=== PATIENT | female | born 2000 | race Caucasian/White ===

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

== ENCOUNTER → 2018-01-11 13:55 | Outpatient (CLI) | payer BC, MEDICAID, SELFPAY ==
--- NOTE | 2018-01-11 13:56 | US_ITS ---
STUDY: SECOND AND THIRD TRIMESTER OBSTETRICAL ULTRASOUND - LIMITED REASON FOR EXAM: Female, 17 years old. growth. LMP: 04/09/2017 PRIOR ULTRASOUND: 08/17/2017. TECHNIQUE: Transabdominal ultrasound evaluation was performed. FINDINGS: There is a single intrauterine fetus. The fetus is in a cephalic presentation. There is demonstrated cardiac activity with a heart rate of 142 bpm. There is a normal amniotic fluid volume. The largest amniotic fluid pocket measures 5.0 cm. The amniotic fluid index (OLAYINKA) is 9.6 cm. The placenta is anterior in location and is not low lying. There are Grade 3 placental changes. Cervix is not adequately measured. It is grossly closed. BIOMETRY: BPD: 9.5: 38 weeks, 5 days HC: 34.3: 39 weeks, 5 days AC: 35.5: 39 weeks, 3 days FL: 7.7: 39 weeks, 3 days Age by LMP: 39 weeks, 4 days. BHAVIK by LMP: 01/14/2018. age by prior US: 39 weeks, 6 days. BHAVIK by prior US: 01/12/18. age by current US: 39 weeks, 3 days. BHAVIK by current US: 01/15/2018. Estimated weight: 3751 grams, +/- 548 grams, 68 percentile. Gender: US/OB Limited With Biometrics IMPRESSION: Single live fetus in a vertex presentation. survey not performed on this exam. Placenta is grade 3 and is not low-lying. Cervix is grossly closed. age by prior US: 39 weeks, 6 days. BHAVIK by prior US: 01/12/18. age by current US: 39 weeks, 3 days. BHAVIK by current US: 01/15/2018. Estimated weight: 3751 grams, +/- 548 grams, 68 percentile. Electronically Signed: Jose Vizcaino MD at 10:36 EDT , Service support ,
== END ==
PROVIDERS: Visit Provider Obstetrics & Gynecology
DX: Z34.90 Encounter for supervision of normal pregnancy, unspecified, unspecified trimester (principal)
CPT/HCPCS: 76816

== ENCOUNTER 2018-01-13 14:30 | Inpatient (IN) | payer BC, MEDICAID, SELFPAY ==
[2018-01-13 11:19] VITALS: BMI 44.8
[2018-01-13] MEDS: 0.9% Saline Lock 10 ML Syringe IV (11:35)
[2018-01-13 11:53] LABS: Hemoglobin 12.9 g/dl (12.0-15.0); Mean Corp Hgb Conc 33.9 g/gl (32-36); Mean Corpuscular Hgb 30.8 pg (27.0-32.0); Mean Corpuscular Volume 90.7 fL (81-99); Mean Platelet Vol. 10.1 fl (6.2-12.0); Platelet Count 259 K/mm3 (150-450); RBC Distribution Width CV 12.8 % (11.6-14.6); RBC Distribution Width SD 41.8 fl (35.1-43.9); Red Blood Count 4.19 M/mm3 (4.2-5.4); Scan Indicated on CBC? Y/N NO; White Blood Count 14.6 K/mm3 (4.4-11.0)
[2018-01-13 12:28] LABS: Prothrombin Time (Protime)PT. 12.9 SECONDS (11.7-14.9)
[2018-01-13 12:29] LABS: Partial Thromboplast Time 28.1 Seconds (24.1-36.2)
[2018-01-13 12:38] LABS: AST(SGOT) 10 U/L (15-37); Alanine Aminotransfer ALT/SGPT 10 U/L (13-56); Creatinine, Serum 0.54 mg/dL (0.55-1.02); EST Glomerular Filtration Rate 153 mL/min (>60); Est Glom Filt Rate - Afr Amer 185 mL/min (>60); Estimated Creatinine Clearance 150.78 ml/min; Uric Acid 3.9 mg/dL (2.6-6.0)
[2018-01-13 12:46] LABS: Protein:Creat Ratio 153 mg/g CRE (0-200)
[2018-01-13] MEDS: Lactated Ringers 1,000 ML 50 ML IV (14:45)
--- NOTE | 2018-01-13 15:46 | PCM.HP.OB ---
- Problem List (1) heart deceleration Status: Acute (2) Supervision of normal Status: Acute Qualifiers: Comment: PRR BHAVIK 01/14/18 boy Ambrosio boyfriend Juan (3) Morbid obesity Status: Acute History Date of Admission: 01/13/18 Final BHAVIK: 01/14/18 Gestational age: 39 Weeks and 6 Days History of this : 17 yo @ 39w6d presents for IOL secondary to heart rate decelerations. she had a four minute spontaneous decel followed by a late decel during triage monitoring. Pertinent Past Medical History: Past Surgical History (Last Reviewed 01/13/18 @ 10:31 by Madeline Salazar) History of tonsillectomy (Acute) Social History (Last Reviewed 01/13/18 @ 10:31 by Madeline Salazar) No Social History Section defined Mom's Labs & Results 01/13/18 01/13/18 01/13/18 11:35 11:35 11:35 WBC 14.6 H RBC 4.19 L Hgb 12.9 Hct 38.0 MCV 90.7 MCH 30.8 MCHC 33.9 RDW 12.8 RDW Differential 41.8 Plt Count 259 MPV 10.1 PT 12.9 INR 1.0 APTT 28.1 Creatinine 0.54 L Estim Creat Clear Calc 150.78 Est GFR (MDRD) Af Amer 185 Est GFR (MDRD) Non-Af 153 Uric Acid 3.9 AST 10 L ALT 10 L U Random Total Protein Urine Creatinine Protein/Creatinin Ratio Blood Type Antibody Screen 01/13/18 01/13/18 12:00 12:00 WBC RBC Hgb Hct MCV MCH MCHC RDW RDW Differential Plt Count MPV PT INR APTT Creatinine Estim Creat Clear Calc Est GFR (MDRD) Af Amer Est GFR (MDRD) Non-Af Uric Acid AST ALT U Random Total Protein 23.0 H Urine Creatinine 150.00 Protein/Creatinin Ratio 153 Blood Type A POSITIVE Antibody Screen NEGATIVE Course Did the patient receive Yes care? Labs HIV/AIDS Non-Reactive Current Obstetrical History Gestational Diabetes No Incompetent Cervix No Infertility No IUGR No Macrosomia No Hypertension/Pre-eclampsia No Placenta Previa/Abruption No PTL/PROM No Uterine anomaly No Oligohydramnios No Polyhydramnios No Multiple gestation No Past Medical History Asthma No Diabetes No Hypertension No Heart disease No Mitral valve prolapse No Neurologic/Seizure disorder/ No Migraines Kidney disease No Liver disease No Varicosities No Clotting disorders/Hx of DVT No Thyroid Dysfunction No Other medical diseases No Psychiatric disorders No Major trauma No Abnormal PAP smear No Sleep apnea No Mammogram in the last 2 years No Social History Marital Status: SINGLE Alleged father Juan Corbett Hx Smoking No Smoking Status Former smoker Allergies ibuprofen Allergy (Verified 01/13/18 10:31) Angioedema Current Medications Acetaminophen (Tylenol) 325 - 650 mg PO Q4H PRN PRN PRN Reason: PAIN OR FEVER >100.4F Al Hydroxide/Mg Hydroxide (Mylanta Ii) 15 - 30 ml PO Q4H PRN PRN PRN Reason: INDIGESTION Citric Acid/Sodium Citrate (Bicitra) 30 ml PO UD PRN Lactated Ringer's () 1,000 mls @ 50 mls/hr IV .Q20H TERRY Nalbuphine HCl (Nubain) 5 - 10 mg IV Q3H PRN PRN PRN Reason: PAIN (4-10/10) Ondansetron HCl (Zofran) 4 mg IV Q8H PRN PRN PRN Reason: NAUSEA Promethazine HCl (Phenergan Iv) 6.25 - 12.5 mg IV Q4H PRN PRN; Protocol PRN Reason: IF NAUSEA PERSISTS Sodium Chloride () 5 - 15 ml IV UD TERRY Smoking Status: Never smoker Alcohol: None Drug Use: none Number of Fetus(es): 1 - 150 moderate variability reactive 4 minute spontaneous decel, one late, overall category I reassuring toco irritability Review of Systems Constitutional: Denies: Chills, Fever, Weight Change HEENT: Denies: Head Aches, Sinus Congestion, Sinus Drainage Cardiovascular: Denies: Chest Pain, Palpitations Respiratory: Denies: Cough, Shortness of breath at rest, Sputum production Gastrointestinal: Denies: Abdominal Pain, Nausea, Vomiting Genitourinary: Denies: Dysuria Musculoskeletal: Denies: Joint Pain, Joint Tenderness Skin: Denies: Rash, Wounds Neurological: Denies: Numbness, Tingling, Focal weakness Psychiatric: Denies: Anxiety, Depression, Homicidal Ideations, Suicidal Ideations Hematologic/ Lymphatic: Denies: Easy Bruising, Easy Bleeding Physical Exam General: Alert, Oriented x3 Cardiovascular: Regular rate Lungs: Normal air movement Abdomen: Soft, Non Tender Estimated gestational size: Appropriate for gestational size Cervix Dilation (cm): 1.5 Station: -3 Effacement (%): 70 Assessment/Plan Active and Suspected Problems (Last Reviewed 01/13/18 @ 10:31 by Madeline Salazar) heart deceleration (Acute) Morbid obesity (Acute) 17 yo @ 39w6d presents for IOL secondary to heart rate decel plan cytotec IOL epi prn
[2018-01-13] MEDS: miSOPROStol 25 MCG TABLET VAGINAL (20:51)
[2018-01-14] MEDS: Lactated Ringers 1,000 ML 50 ML IV ×6 (00:18→14:41)
[2018-01-14] MEDS: 0.9% Normal Saline 100 ML IV.SOLN. INTRA-UTER (01:43)
[2018-01-14] MEDS: Oxytocin 30 units/NS 500 ml 30 UNITS/500 ML IV.SOLN IV (02:15)
--- NOTE | 2018-01-14 05:54 | PCM.PN.BLA ---
Progress Note fht 140s moderate variability reactive unable to trace contractions so unclear if decelerations are present. arom performed and iupc placed.exp management
[2018-01-14] MEDS: fentaNYL-bupivacaine (epidural) 100 ML BAG EPIDURAL ×2 (08:04→12:50)
[2018-01-14] MEDS: Amnioinfusion- 0.9% NS 1,000 ML IV.SOLN. INTRA-UTER ×2 (09:14→12:45)
--- NOTE | 2018-01-14 09:26 | PCM.PN.BLA ---
Progress Note fhts 150s had 20 minutes of late decels with minimal variability and then positive scalp stimulation, recurrent variables x 10 minutes with moderate variability and then resolution of decels, positive accelerations. continue expectant managment. now category I tracing
[2018-01-14] MEDS: Terbutaline 1 MG/ML Vial 0.25 MG SC (09:45)
[2018-01-14] MEDS: Oxytocin 30 units/NS 500 ml 30 UNITS/500 ML IV.SOLN 334 UNITS IV (16:13)
[2018-01-14] MEDS: Oxytocin 30 units/NS 500 ml 30 UNITS/500 ML IV.SOLN 167 UNITS IV (16:43)
[2018-01-14 18:00] VITALS: BP 118/82; PULSE 115; RESP 20; TEMP 36.4
[2018-01-14] MEDS: Acetaminophen 500 MG Tablet 1000 MG PO (19:45)
[2018-01-14 19:51] VITALS: BP 123/58; PULSE 110; RESP 16; TEMP 36.8
[2018-01-15 00:59] VITALS: BP 120/60; PULSE 80; RESP 18; TEMP 37
[2018-01-15] MEDS: Acetaminophen 500 MG Tablet 1000 MG PO ×2 (04:39→16:05)
[2018-01-15 04:40] VITALS: BP 110/65; PULSE 100; RESP 18; TEMP 36.7; O2SAT 97
[2018-01-15 08:00] VITALS: BP 113/60; PULSE 100; RESP 18; TEMP 36.4; O2SAT 98
[2018-01-15 12:00] VITALS: BP 112/68; PULSE 98; RESP 18; TEMP 36.5
[2018-01-15 16:18] VITALS: BP 115/64; PULSE 108; RESP 18; TEMP 36.6
[2018-01-15 20:00] VITALS: BP 121/71; PULSE 95; RESP 16; TEMP 36.4; O2SAT 97
[2018-01-16 01:40] VITALS: BP 123/82; PULSE 96; RESP 18; TEMP 36.6
--- NOTE | 2018-01-16 07:00 | PCM.OB.VAG ---
- Problem List (1) heart deceleration Status: Acute (2) Supervision of normal Status: Acute Qualifiers: Comment: PRR BHAVIK 01/14/18 boy Ambrosio boyfrienmiguel a Martinez (3) Morbid obesity Status: Acute Vaginal Delivery Maternal Presentation: Medically Indicated Induction iol decels Method of Induction: Pitocin, Schmitz Bulb, Cytotec Amniotic Fluid Description: Clear Final BHAVIK: 01/14/18 Gestational age: 40 Weeks and 2 Days Date of Procedure: 01/14/18 Pre-Operative Diagnosis: iol decels Post-Operative Diagnosis: justino Surgery/ Procedure Performed: Spontaneous Vaginal Delivery Type of Anesthesia: Epidural Description of Procedure: Patient began pushing and delivered the head in the OMEGA presentation. The head was delivered atraumatically and a loose nuchal cord ?1 was identified and easily reduced over the 's head. The anterior and posterior shoulders delivered without complication followed by the rest of the infant which was noted to have a tight double body cord the was reduced and the was placed on the maternal abdomen. Delayed cord clamping was employed for approximately 60 seconds. Cord was clamped and cut and gentle traction was applied to the cord and the placenta delivered spontaneously immediately following it was noted to be intact with three-vessel cord. The perineum and vagina were inspected and noted to have a second degree laceration that was repaired in the usual fashion. Patient and infant tolerated delivery well. Placental Delivery Description: Spontaneous Cord Entanglement: Around neck x 1, loose, - - body cord x 2 Infant A gender: Male Laceration: Perineal Extension/lac, 2nd degree Medications given after delivery: IV Pitocin Complications: None
--- NOTE | 2018-01-16 07:07 | PCM.PN.OB ---
Patient Problems: Active and Suspected Problems (Last Reviewed 01/13/18 @ 10:31 by Madeline Salazar) heart deceleration (Acute) Morbid obesity (Acute) Subjective: late entry - seen 01/15/18 0800 doing well no complaints pain controlled - Physical Exam General: Alert Vital Signs Temp Pulse Resp BP Pulse Ox 97.9 F 96 18 123/82 H 97 01/16/18 01:40 01/16/18 01:40 01/16/18 01:40 01/16/18 01:40 01/15/18 20:00 Oxygen Delivery Method Room Air Weight: 269 lb 6.478 oz Body Mass Index (BMI) 44.8 Intake and Output for Last 24 Hours 01/14/18 01/15/18 01/16/18 23:59 23:59 23:59 Intake Total 7541 / 7541 Output Total 3150 / 3150 Balance 4391 / 4391 Medical Necessity - Tobacco Use Smoking Status: Never smoker Assessment/Plan Active and Suspected Problems (Last Reviewed 01/13/18 @ 10:31 by Madeline Salazar) heart deceleration (Acute) Morbid obesity (Acute) s/p routine care
--- NOTE | 2018-01-16 07:08 | PCM.DCVAG ---
Discharge Diet: No Restrictions Discharge Activity: Return to Normal Activity, May not drive while taking narcotic pain medications., May Shower May resume sexual activity in: 4-6 weeks Call your doctor if your incision/area has: Continuous Slow Oozing, Sudden Increased Bleeding, Increased Pain/ Swelling, Increased Redness, Foul Smelling Discharge Additional Instructions: If you experience any of the following, contact your healthcare provider. Bleeding that soaks a pad every hour for 2 hours Fever 100.4 or higher Unrelieved incision or abdominal pain Swelling, redness, discharge or bleeding from your incision or episiotomy site Your incision begins to separate Problems urinating (including inability to urinate or burning while urinating). Visual changes Severe headache Flu-like symptoms Pain or redness in one of both of your breasts Pain, warmth, tenderness or swelling in your legs, especially the calf area Frequent nausea and vomiting Symptoms of depression or anxiety If you experience any of the following, call 911 or go to the nearest Emergency Room. Chest pain Problems breathing Seizure activity Partial or complete paralysis of a body part, slurred speech, weakness or drooping of the face, or a sudden inability to walk or hold your balance Allergies/Adverse Reactions: Allergies ibuprofen Allergy (Verified 01/13/18 10:31) Angioedema Medications to take at Discharge Vit No.130/Iron/FA [ Vitamins] 1 ea PO DAILY 05/22/17 Please Follow Up With: Guadalupe Nunn MD - [phone] When: Call to make an appointment with your doctor in 6 weeks. If you had elevated Blood pressure or 4th degree laceration you will need to be seen in 2 weeks. Primary Care Physician: Care Physician,No Primary [Primary Care Provider] -
--- NOTE | 2018-01-16 07:09 | DCINST_ITS ---
Discharge Diet: No Restrictions Discharge Activity: Return to Normal Activity, May not drive while taking narcotic pain medications., May Shower May resume sexual activity in: 4-6 weeks Call your doctor if your incision/area has: Continuous Slow Oozing, Sudden Increased Bleeding, Increased Pain/ Swelling, Increased Redness, Foul Smelling Discharge Additional Instructions: If you experience any of the following, contact your healthcare provider. * Bleeding that soaks a pad every hour for 2 hours * Fever 100.4 or higher * Unrelieved incision or abdominal pain * Swelling, redness, discharge or bleeding from your incision or episiotomy site * Your incision begins to separate * Problems urinating (including inability to urinate or burning while urinating) . * Visual changes * Severe headache * Flu-like symptoms * Pain or redness in one of both of your breasts * Pain, warmth, tenderness or swelling in your legs, especially the calf area * Frequent nausea and vomiting * Symptoms of depression or anxiety If you experience any of the following, call 911 or go to the nearest Emergency Room. * Chest pain * Problems breathing * Seizure activity * Partial or complete paralysis of a body part, slurred speech, weakness or drooping of the face, or a sudden inability to walk or hold your balance Allergies/Adverse Reactions: Allergies ibuprofen Allergy (Verified 01/13/18 10:31) Angioedema Medications to take at Discharge Vit No.130/Iron/FA [ Vitamins] 1 ea PO DAILY 05/22/17 Please Follow Up With: Guadalupe Nunn MD - [phone] When: Call to make an appointment with your doctor in 6 weeks. If you had elevated Blood pressure or 4th degree laceration you will need to be seen in 2 weeks. Primary Care Physician: Care Physician,No Primary [Primary Care Provider] -
[2018-01-16 07:40] VITALS: BP 130/76; PULSE 109; RESP 14; TEMP 36.4; O2SAT 97
[2018-01-16] MEDS: Prenatal Vits Tablet 1 TABLET PO (11:52)
[2018-01-16 14:03] VITALS: BP 143/69; PULSE 101; RESP 16; TEMP 36.6; O2SAT 99
== END 2018-01-16 15:20 | disposition home or self-care (01) | DRG 775 ==
LOC: WP 14:49 → WPOUT 01-15 13:20
PROVIDERS: Admitting Provider Obstetrics & Gynecology; Visit Provider Obstetrics & Gynecology
DX: O76 Abnormality in fetal heart rate and rhythm complicating labor and delivery (principal); O70.1 Second degree perineal laceration during delivery; Z37.0 Single live birth; O69.81X0 Labor and delivery complicated by cord around neck, without compression, not applicable or unspecified; O99.214 Obesity complicating childbirth; E66.01 Morbid (severe) obesity due to excess calories; Z87.891 Personal history of nicotine dependence; Z3A.40 40 weeks gestation of pregnancy; Z68.53 Body mass index [BMI] pediatric, 85th percentile to less than 95th percentile for age
CPT/HCPCS: 36415; 59025; 59050; 82565; 82570; 84156; 84450; 84460; 84550; 85027; 85610; 85730; 86850; 86900; 99218; J7030; J7120; A4216; G0378

== ENCOUNTER → 2018-06-30 18:10 | Outpatient (CLI) | payer BC, SELFPAY | PROVIDERS: Visit Provider Nurse Practitioner Women's Health | DX: N76.0 Acute vaginitis (principal) | CPT/HCPCS: 87070; 87077; 87186; 87205 ==

== ENCOUNTER → 2018-09-30 18:00 | Outpatient (CLI) | payer BC, SELFPAY ==
[2018-09-30 15:23] VITALS: BMI 45.3
[2018-09-30 21:43] LABS: Chlamydia Trachomatis by PCR POSITIVE (Negative); Neisserai gonorrhoeae by PCR Negative (Negative); Probe Check PASS; Sample Adequacy Control PASS; Specimen Processing Control PASS
[2018-10-04 12:37] LABS: HSV Culture Without Typing Positive (.)
== END ==
PROVIDERS: Referring Provider Nurse Practitioner Women's Health; Visit Provider Nurse Practitioner Women's Health
DX: Z11.3 Encounter for screening for infections with a predominantly sexual mode of transmission (principal); N90.89 Other specified noninflammatory disorders of vulva and perineum
CPT/HCPCS: 87255; 87491; 87591

== ENCOUNTER → 2018-10-29 14:13 | Outpatient (CLI) | payer BC, MEDICAID, SELFPAY ==
[2018-10-29 13:51] VITALS: BMI 45.1
[2018-10-29 15:59] LABS: HIV - WCH Non-Reactive (Nonreactive)
[2018-10-29 21:35] LABS: Chlamydia Trachomatis by PCR Negative (Negative)
[2018-10-29 21:36] LABS: Neisserai gonorrhoeae by PCR Negative (Negative); Probe Check PASS; Sample Adequacy Control PASS; Specimen Processing Control PASS
[2018-11-01 22:07] LABS: HCV Quant. RNA PCR HCV Not Detected IU/mL (.)
[2018-11-03 16:37] LABS: HSV 2 IgG 0.95 index (0.00-0.90)
[2018-11-05 01:10] LABS: Rapid Plasmin Reagin (RPR) NONREACTIVE (NONREACTIVE)
== END ==
PROVIDERS: Referring Provider Nurse Practitioner Women's Health; Visit Provider Nurse Practitioner Women's Health
DX: Z11.3 Encounter for screening for infections with a predominantly sexual mode of transmission (principal)
CPT/HCPCS: 36415; 86592; 86695; 86696; 86703; 87491; 87522; 87591

== ENCOUNTER → 2019-04-11 17:09 | Outpatient (CLI) | payer OTHER, MEDICAID, SELFPAY ==
[2019-04-11 15:54] VITALS: BMI 45.1
[2019-04-11 21:40] LABS: Chlamydia Trachomatis by PCR Negative (Negative); Neisserai gonorrhoeae by PCR Negative (Negative); Probe Check PASS; Sample Adequacy Control PASS; Specimen Processing Control PASS
[2019-04-15 17:01] LABS: HPV Reflexed? NOT INDICATED
== END ==
PROVIDERS: Referring Provider Obstetrics & Gynecology; Visit Provider Obstetrics & Gynecology
DX: Z12.4 Encounter for screening for malignant neoplasm of cervix (principal); Z34.90 Encounter for supervision of normal pregnancy, unspecified, unspecified trimester
CPT/HCPCS: 87086; 87088; 87491; 87591; 87624; 88175; G0145

== ENCOUNTER → 2019-05-10 12:17 | Outpatient (CLI) | payer OTHER, MEDICAID, SELFPAY ==
[2019-05-10 11:44] VITALS: BMI 45.1
[2019-05-10 13:59] LABS: Absolute Neutrophil Count 5.3 X10^3/uL (2.0-7.7); Basophil# 0.03 X10^3/uL; Basophil% 0.4 % (0-1); Eosinophil# 0.09 X10^3/uL; Eosinophils% 1.1 % (0-5); Hematocrit 36.4 % (37-47); Hemoglobin 12.2 g/dL (12.0-15.0); Lymphocyte % 29.5 % (19-41); Mean Corp Hgb Conc 33.5 g/dL (32-36); Mean Corpuscular Hgb 29.7 pg (27.0-32.0); Mean Corpuscular Volume 88.6 fL (81-99); Mean Platelet Vol. 10.6 fl (6.2-12.0); Monocyte# 0.53 X10^3/uL; Monocyte% 6.3 % (0-10); NRBC Flagged by Analyzer 0 % (0-5); Neutrophil # 5.29 X10^3/uL (2.7-7.7); Neutrophil % 62.3 % (47-70); Platelet Count 240 K/mm3 (150-450); RBC Distribution Width CV 12.4 % (11.6-14.6); RBC Distribution Width SD 39.9 fl (35.1-43.9); Red Blood Count 4.11 M/mm3 (4.2-5.4); White Blood Count 8.5 K/mm3 (4.4-11.0)
[2019-05-10 14:22] LABS: Glucose Challenge Gest 1H 50g 100 mg/dL (70-140)
[2019-05-10 15:11] LABS: HIV - WCH Non-Reactive (Nonreactive); Rubella IgG 67.5 IU/mL
[2019-05-12 13:36] LABS: Rapid Plasmin Reagin (RPR) NONREACTIVE (NONREACTIVE)
== END ==
PROVIDERS: Family Provider Family Medicine; PCP Family Medicine; Referring Provider Obstetrics & Gynecology; Visit Provider Obstetrics & Gynecology
DX: Z34.82 Encounter for supervision of other normal pregnancy, second trimester (principal); Z31.5 Encounter for procreative genetic counseling; Z13.79 Encounter for other screening for genetic and chromosomal anomalies
CPT/HCPCS: 36415; 82950; 85025; 86592; 86703; 86762; 86850; 86900

== ENCOUNTER → 2019-09-01 14:26 | Outpatient (CLI) | payer OTHER, MEDICAID, SELFPAY ==
[2019-09-01 14:02] VITALS: BMI 47.9
[2019-09-01 15:30] LABS: Protein, Urine (Random) 24.8 mg/dL (<11.9); Protein:Creat Ratio 182 mg/g CRE (0-200)
[2019-09-01 16:25] LABS: Absolute Lymphocyte Count 2.42 X10^3/uL (0.83-4.51); Absolute Neutrophil Count 8.8 X10^3/uL (2.0-7.7); Basophil# 0.03 X10^3/uL; Basophil% 0.2 % (0-1); Eosinophil# 0.14 X10^3/uL; Eosinophils% 1.2 % (0-5); Hematocrit 33.8 % (37-47); Hemoglobin 11.5 g/dL (12.0-15.0); Lymphocyte # 2.42 X10^3/ul (4.0); Mean Corpuscular Hgb 30.9 pg (27.0-32.0); Mean Corpuscular Volume 90.9 fL (81-99); Mean Platelet Vol. 10.7 fl (6.2-12.0); Monocyte# 0.57 X10^3/uL; Monocyte% 4.7 % (0-10); NRBC Flagged by Analyzer 0 % (0-5); Neutrophil % 72.5 % (47-70); Platelet Count 212 K/mm3 (150-450); RBC Distribution Width CV 13.2 % (11.6-14.6); RBC Distribution Width SD 43.6 fl (35.1-43.9); Red Blood Count 3.72 M/mm3 (4.2-5.4); White Blood Count 12.1 K/mm3 (4.4-11.0)
[2019-09-01 16:57] LABS: BUN 5 mg/dL (7-18); Creatinine, Serum 0.56 mg/dL (0.55-1.02); EST Glomerular Filtration Rate 144 mL/min (>60); Glucose 114 mg/dL (74-106); Glucose Challenge Gest 1H 50g 114 mg/dL (70-140)
[2019-09-01 16:58] LABS: ALB/GLOB Ratio 0.6 RATIO (0.9-2.4); AST(SGOT) 9 U/L (15-37); Alanine Aminotransfer ALT/SGPT 8 U/L (13-56); Albumin, Serum 2.9 g/dL (3.2-5.0); Alkaline Phosphatase 103 U/L (45-117); Anion Gap 11 (5-15); BUN/Creat Ratio 8.9 RATIO (10-20); Calcium,Total 8.8 mg/dL (8.5-10.1); Chloride 107 mmol/L (98-107); Est Glom Filt Rate - Afr Amer 175 mL/min (>60); Globulin 4.5 g/dL (2.2-4.2); Potassium 3.5 mmol/L (3.5-5.1); Protein, Total 7.4 g/dL (6.4-8.2); Sodium Level 139 mmol/L (136-145)
[2019-09-02 09:08] LABS: Hepatitis B Surface Antigen Non-Reactive (Nonreactive)
== END ==
PROVIDERS: Family Provider Family Medicine; PCP Family Medicine; Referring Provider Nurse Practitioner Women's Health; Visit Provider Nurse Practitioner Women's Health
DX: O09.90 Supervision of high risk pregnancy, unspecified, unspecified trimester (principal); E66.01 Morbid (severe) obesity due to excess calories; Z3A.00 Weeks of gestation of pregnancy not specified
CPT/HCPCS: 36415; 80053; 82570; 82950; 84156; 85025; 87340

== ENCOUNTER 2019-09-24 22:35 | Outpatient (CLI) | payer OTHER, MEDICAID, SELFPAY ==
[2019-09-22 14:59] VITALS: BMI 47.9
[2019-09-24 23:12] VITALS: BMI 49.2
--- NOTE | 2019-09-25 04:19 | OB.TRI.PN_ITS ---
Progress Notes Date of Service: 09/24/19 Progress Note: Patient presents for triage evaluation secondary to decreased movement FHT: 130-1 40 moderate variability reactive no decelerations category I tracing Mullan: Regular contractions Assessment and plan: Decreased movement overall reassuring patient now fe eling movement reactive NST, reassuring maternal and status patient discharged to home to follow-up as scheduled. See problem list details for additional plan information. - Problem List (1) Decreased movement Status: Acute Multi Select Codes - Urinary/Genital Urinary/Genital CPT Codes: 11639-96 non-stress test Interp
== END 2019-09-24 23:23 | disposition home or self-care (01) ==
LOC: WPOUT 22:54 → WP 22:55
PROVIDERS: Family Provider Family Medicine; PCP Family Medicine; Referring Provider Obstetrics & Gynecology; Visit Provider Obstetrics & Gynecology
DX: O36.8190 Decreased fetal movements, unspecified trimester, not applicable or unspecified (principal); Z3A.00 Weeks of gestation of pregnancy not specified
CPT/HCPCS: 59025; 59050; 94760; 99218; G0378

== ENCOUNTER → 2019-10-11 13:54 | Outpatient (CLI) | payer OTHER, MEDICAID, SELFPAY ==
[2019-10-06 12:18] VITALS: BMI 49.2
--- NOTE | 2019-10-11 13:55 | US_ITS ---
STUDY: SECOND AND THIRD TRIMESTER OBSTETRICAL ULTRASOUND - LIMITED REASON FOR EXAM: Female, 19 years old GROWTH LMP: February 19, 2019. COMMENT: The study is technically limited secondary to the patient''s large body habitus. PRIOR ULTRASOUND: None. TECHNIQUE: Transabdominal FINDINGS: There is a single intrauterine fetus. The fetus is in a cephalic presentation. There is demonstrated cardiac activity with a heart rate of 165 bpm. There is a normal amniotic fluid volume. The largest amniotic fluid pocket measures 2.95 cm. The amniotic fluid index (OLAYINKA) is 6.64 cm. The placenta is anterior in location and is not low lying. There are Grade 2 placental changes. The cervix measures 3.9cm in length and is closed. BIOMETRY: BPD: 8.75 cm: 35 weeks, 3 days HC: 31.29 cm: 35 weeks, 1 days AC: 29.49 cm: 33 weeks, 4 days FL: 6.40 cm: 33 weeks, 1 days OFD: 10.77 cm: 34 weeks, 3 days HC/AC 1.06. CI 81%. FL/BPD 73%. FL/AC 22%. Age by LMP: 33 weeks, 3 days. BHAVIK by LMP: November 26, 2019. age by current US: 34 weeks, 3 days. BHAVIK by current US: November 19, 2019.. Estimated weight: 2253 grams, +/- 329 grams, 50 percentile. Gender: Indeterminate. Please note that anatomic survey was not performed on this late gestation. US/OB Limited With Biometrics IMPRESSION: Viable, cramer, cephalic presentation intrauterine , please see text above. Electronically Signed: Ron Barger MD at 10:48 EST , Service support ,
== END ==
PROVIDERS: Family Provider Family Medicine; PCP Family Medicine; Referring Provider Obstetrics & Gynecology; Visit Provider Obstetrics & Gynecology
DX: O99.211 Obesity complicating pregnancy, first trimester (principal); Z3A.00 Weeks of gestation of pregnancy not specified
CPT/HCPCS: 76816

== ENCOUNTER → 2019-11-04 16:37 | Outpatient (CLI) | payer OTHER, MEDICAID, SELFPAY ==
[2019-11-04 14:22] VITALS: BMI 49.2
== END ==
PROVIDERS: PCP Family Medicine; Referring Provider Obstetrics & Gynecology; Visit Provider Obstetrics & Gynecology
DX: O09.90 Supervision of high risk pregnancy, unspecified, unspecified trimester (principal); Z3A.00 Weeks of gestation of pregnancy not specified
CPT/HCPCS: 87081

== ENCOUNTER → 2019-11-08 13:55 | Outpatient (CLI) | payer OTHER, MEDICAID, SELFPAY ==
[2019-10-06 12:18] VITALS: BMI 49.2
[2019-11-04 14:22] VITALS: BMI 49.2
--- NOTE | 2019-11-08 13:56 | US_ITS ---
STUDY: SECOND AND THIRD TRIMESTER OBSTETRICAL ULTRASOUND - LIMITED REASON FOR EXAM: Female, 19 years old GROWTH -- OBESITY AFFECTING LMP: February 19, 2019 PRIOR ULTRASOUND: Comparison is made with prior examination dated October 11, 2019. TECHNIQUE: Transabdominal TECHNICAL QUALITY: Adequate. FINDINGS: There is a single intrauterine fetus. The fetus is in a cephalic presentation. There is demonstrated cardiac activity with a heart rate of 170 bpm. There is a normal amniotic fluid volume. The largest amniotic fluid pocket measures 2.9 Inocente by 2.4 cm. The amniotic fluid index (OLAYINKA) is 7.3 cm. The placenta is anterior in location and is not low lying. There are Grade 2 placental changes. The cervix was not measured due to lack of filling of the urinary bladder. BIOMETRY: BPD: 9.42 cm: 38 weeks, 2 days HC: 33.75 cm: 38 weeks, 5 days AC: 33.83 cm: 37 weeks, 5 days FL: 7.27 cm: 37 weeks, 1 days Age by LMP: 37 weeks, 3 days. BHAVIK by LMP: November 26, 2019. age by prior US: 38 weeks, 3 days. BHAVIK by prior US: November 19, 2019. age by current US: 38 weeks, 2 days. BHAVIK by current US: November 20, 2019. Estimated weight: 3311 grams, +/- 490 grams, 68 percentile. US/OB Limited With Biometrics IMPRESSION: Single live intrauterine gestation with mean gestational age of 38 weeks and 3 days. The measurements obtained today fall within the normal expected range. Electronically Signed: Rylan Samano, at 9:51 EST , Service support ,
== END ==
PROVIDERS: Family Provider Family Medicine; PCP Family Medicine; Referring Provider Obstetrics & Gynecology; Visit Provider Obstetrics & Gynecology
DX: O99.211 Obesity complicating pregnancy, first trimester (principal); Z3A.00 Weeks of gestation of pregnancy not specified
CPT/HCPCS: 76816

== ENCOUNTER → 2019-11-14 15:09 | Outpatient (CLI) | payer OTHER, MEDICAID, SELFPAY ==
[2019-11-14 14:44] VITALS: BMI 50.0
[2019-11-14 15:42] LABS: ROM Internal Control Test YES-OK TO RESULT pt. (Internal QC); ROM Patient Test Negative (Negative)
== END ==
PROVIDERS: PCP Family Medicine; Referring Provider Nurse Practitioner Women's Health; Visit Provider Nurse Practitioner Women's Health
DX: O09.90 Supervision of high risk pregnancy, unspecified, unspecified trimester (principal); Z3A.00 Weeks of gestation of pregnancy not specified
CPT/HCPCS: 84112

== ENCOUNTER → 2019-11-15 11:29 | Outpatient (CLI) | payer OTHER, MEDICAID, SELFPAY ==
[2019-11-04 14:22] VITALS: BMI 49.2
[2019-11-14 15:56] VITALS: BMI 49.2
--- NOTE | 2019-11-15 11:30 | US_ITS ---
STUDY: OBSTETRICAL ULTRASOUND - BIOPHYSICAL PROFILE REASON FOR EXAM: Female, 19 years old WELL BEING LMP: February 19, 2019 PRIOR ULTRASOUND: Comparison is made with prior examination dated April 30, 2020. TECHNIQUE: Transabdominal TECHNICAL QUALITY: Adequate. FINDINGS: There is a single intrauterine fetus. The fetus is in a cephalic presentation. There is demonstrated cardiac activity with a heart rate of 158 bpm. There is a normal amniotic fluid volume. The largest amniotic fluid pocket measures 7.5 cm. The amniotic fluid index (OLAYINKA) is 11.3 cm. The placenta is anterior in location and is not low lying. There are Grade 3 placental changes. Age by LMP: 38 weeks, 3 days. BHAVIK by LMP: November 26, 2019. age by prior US: 39 weeks, 2 days. BHAVIK by prior US: November 20, 2019. BIOPHYSICAL PROFILE: Breathing Movements (FBM): 2 Gross Body Movements (GBM): 2 Tone (FT): 2 Amniotic Fluid Volume (AFV): 2 TOTAL SCORE: US/Biophysical Profile IMPRESSION: Normal biophysical profile of 05/19. Electronically Signed: Rylan Samano, at 12:50 EST , Service support ,
== END ==
PROVIDERS: PCP Family Medicine; Referring Provider Obstetrics & Gynecology; Visit Provider Obstetrics & Gynecology
DX: O09.90 Supervision of high risk pregnancy, unspecified, unspecified trimester (principal); O99.210 Obesity complicating pregnancy, unspecified trimester; E66.01 Morbid (severe) obesity due to excess calories; Z3A.00 Weeks of gestation of pregnancy not specified
CPT/HCPCS: 76818

== ENCOUNTER 2019-11-26 22:50 | Inpatient (IN) | payer OTHER, MEDICAID, SELFPAY ==
[2019-11-24 08:22] VITALS: BMI 50.7
[2019-11-26 23:34] VITALS: BMI 51.5
[2019-11-27] MEDS: 0.9% Saline Lock 10 ML Syringe IV ×2 (00:05→00:15)
[2019-11-27] MEDS: miSOPROStol 25 MCG TABLET VAGINAL (00:23)
[2019-11-27 00:27] LABS: ROM Internal Control Test YES-OK TO RESULT pt. (Internal QC)
[2019-11-27 00:28] LABS: ROM Patient Test POSITIVE (Negative)
[2019-11-27 00:32] LABS: Absolute Lymphocyte Count 2.88 X10^3/uL (0.83-4.51); Absolute Neutrophil Count 10.2 X10^3/uL (2.0-7.7); Basophil# 0.04 X10^3/uL; Basophil% 0.3 % (0-1); Eosinophil# 0.18 X10^3/uL; Eosinophils% 1.3 % (0-5); Hematocrit 37.3 % (37-47); Hemoglobin 12.6 g/dL (12.0-15.0); Lymphocyte # 2.88 X10^3/ul (4.0); Lymphocyte % 20.4 % (19-41); Mean Corp Hgb Conc 33.8 g/dL (32-36); Mean Corpuscular Volume 91.6 fL (81-99); Mean Platelet Vol. 10.2 fl (6.2-12.0); NRBC Flagged by Analyzer 0 % (0-5); Neutrophil # 10.17 X10^3/uL (2.7-7.7); Platelet Count 278 K/mm3 (150-450); RBC Distribution Width CV 13.9 % (11.6-14.6); RBC Distribution Width SD 46.2 fl (35.1-43.9); Red Blood Count 4.07 M/mm3 (4.2-5.4); White Blood Count 14.1 K/mm3 (4.4-11.0)
[2019-11-27] MEDS: Lactated Ringers 1,000 ML 50 ML IV (05:38)
[2019-11-27] MEDS: Oxytocin 30 units/NS 500 ml 30 UNITS/500 ML IV.SOLN IV (05:41)
--- NOTE | 2019-11-27 07:15 | PCM.HPOB.BLA ---
- Problem List (1) Chlamydia Status: Acute (2) History of depression Status: Acute Comment: celexa in past, nothing at present (3) Morbid obesity Status: Acute (4) Obesity affecting Status: Acute Qualifiers: Comment: 1 tm glucola encouraged healthy weight gain, adequate growth us at 32 weeks and weekly nsts (5) Status: Acute Qualifiers: Comment: NIPT low risk. carrier and ntd screening declined. 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 FOB needs tested. 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 Is patient in pain?: No Allergies ibuprofen Allergy (Verified 11/24/19 08:22) Shortness of breath Medications vitamin#30 30 mg iron-10 mg iron-folic acid 1 mg-omg3 capsule 1 cap PO cap 04/11/19 [History Confirmed 11/24/19] valacyclovir 500 mg tablet 500 mg PO DAILY #14 tab 11/07/19 [Rx Confirmed 11/24/19] Last Menstral Period: 02/21/19 Zika: Zika virus screening: Negative : No PFSH PFSH Medical History History of depression (Acute) Genital herpes (Chronic) Surgical History History of tonsillectomy (Acute) Social History (Updated 11/24/19 @ 09:09 by Guadalupe Nunn MD) Smoking Status: Light Smoker (<10/day) alcohol intake: never substance use type: does not use caffeine: Yes what type of physical activity do you participate in: none seatbelt use: always do you feel safe at home: Yes Pregancy History 2 Elective abortions Hx Para 1 Spontaneous abortions Hx # Term Pregnancies 1 Ectopic pregnancies Hx # Pregnancies Multiple births # of living children 1 Past Pregnancies Del. Date Name GA/Weeks Outcome Route Bth Weight Infant Gen Labor Lgth Anesthesia Del Locatn Provider FOB 01/13/18 Ambrosio 40 live - full term Male epidural [facility] Delivery Date: 01/13/18 On 01/21/18 @ 09:06 Ary Ellington decel IOL HPI est ob 39w,NST: Details: JOHN TATUM is a 19 year old who presents IAL with SROM but only 1-2 cm- plan cytotec then pitocin. OB Visit BHAVIK Calculator Estimated Delivery Date Method Current WG Current Estimate 11/28/19 LMP (Certain) 39w 3d Expected Delivery Route/Plan Labor Preferences- labor support person: [] pain management options preferred: [] cut cord/dad catch: [] : [] PP control planned: [] discussed possible routes of delivery and associated risks: [] special requests: [] Specific Issue/Plans flu vaccine: declines tdap vaccine: given rhogam: na LARC form signed: declined Problem list reviewed and updated with the most current plan of care details and appropriate orders placed. Relevant counseling for the gestational age provided. Continue routine care and follow up unless otherwise noted in visit notes/problem list details Initial Weight: Not Recorded Date EGA Weight BP Urine Prot Glucose FHR FuHt Pres Dilation Effaced St Visit Note 05/10/19 11w 1d 278 lb 278 lb 120/84 Negative Negative 170 no vb cramping still some nausea wants NT, NIPT, and carrier screening. 06/07/19 15w 1d 284 lb 118/82 160 16 no vb cramping doing well 07/08/19 19w 4d 288 lb 126/82 Negative Negative 150 20 no vb lof good fm n oregular ctx 08/05/19 23w 4d 297 lb 120/80 Trace Negative 150 24 no vb lof good fm no reg ctx 09/01/19 27w 3d 303 lb 2 oz 130/74 Trace Negative 148 Good FM, NO VB, LOF. 09/22/19 30w 3d 304 lb 138/87 Negative Negative 155 no vb lof good fm 10/06/19 32w 3d 304 lb 8 oz 128/84 Negative Negative 10/27/19 35w 3d 309 lb 122/84 140 SM- no vb lof good fm no regular ctx. 11/04/19 36w 4d 309 lb 6 oz 129/82 Negative Negative 140 SM- no vb lof good fm no regular ctx 11/11/19 37w 4d 310 lb 139/83 140 SM- no vb lof good fm no regular ctx started on valtrex last week 11/14/19 38w 0d 310 lb 139/88 Negative Negative 145 2 50 -3 MH-work in for question SROM and decreased FM. 11/24/19 39w 3d 314 lb 4 oz 126/78 Negative Negative 140 SM- no vb lof good fm no regular ctx Notes Visit Date: 11/24/19 ??No visit notes to display Visit Date: 11/14/19 ??No visit notes to display Visit Date: 11/11/19 ??No visit notes to display Visit Date: 11/04/19 ??No visit notes to display Visit Date: 10/27/19 ??No visit notes to display Visit Date: 10/06/19 ??No visit notes to display Visit Date: 09/22/19 ??no vb lof good fm ??Guadalupe Nunn MD on 09/22/19 Visit Date: 09/01/19 ??Good FM, NO VB, LOF. ??DAREK Crow on 09/01/19 Visit Date: 08/05/19 ??no vb lof good fm no reg ctx ??Guadalupe Nunn MD on 08/12/19 Visit Date: 07/08/19 ??no vb lof good fm n oregular ctx ??Guadalupe Nunn MD on 07/08/19 Visit Date: 06/07/19 ??no vb cramping doing well ??Guadalupe Nunn MD on 06/14/19 Visit Date: 05/10/19 ??no vb cramping still some nausea wants NT, NIPT, and carrier screening. ??Guadalupe Nunn MD on 05/10/19 ACOG First Trimester First Trimester: Desire for , Alcohol, Tobacco Cessation, Illicit/Recreational Drug/Substance Use, Intimate Partner Violence, Barriers to care, Unstable Housing, Communication Barriers, Environmental/Work Hazards, Anticipated Course of Care, Toxoplasmosis Precations, Use of Any medications, Sexual activity, Exercise, Dental Care, Sauna/Hot tub use, Seat Belt use, Childbirth classes/Hospital facilities, Travel, Indications for US and Screening for Aneuploidy; discussed Second Trimester Second Trimester: Signs and Symptoms of Labor, Selecting a care provider, Reproductive Life Planning, Care Planning and Depression/Anxiety; discussed Tobacco Cessation or discussed Intimate Partner Violence Third Trimester Third Trimester: Pain Management Plans, Labor support person(s), Immediate Larc, Circumcision preference, Movement Monitoring, Signs and Symptoms of Preeclampsia, Labor Signs and Depression; discussed Tobacco Cessation Diagnostics Diagnostics Details: HIV: Urine Culture: Sequential Screen: NIPT Screen: ROS Const Reports system reviewed and no additional complaints, except as docu Card Reports system reviewed and no additional complaints, except as docu Resp Reports system reviewed and no additional complaints, except as docu GI Reports system reviewed and no additional complaints, except as docu, Reports nausea Reports system reviewed and no additional complaints, except as docu Musc Reports system reviewed and no additional complaints, except as docu Exam Const General: cooperative, healthy appearing, comfortable, anxious HENMT Head: normal to inspection Nose: external nose normal Face and sinus: normal facial exam Neck Neck: normal visual inspection, full ROM, no lymphadenopathy Thyroid: thyroid normal Chest Chest palpation & inspection: normal inspection of the chest Resp Effort & Inspection: normal respiratory effort GI Inspection: normal to inspection Palpation: soft, other (gravid uterus) Other: vertex and appropriate size for gestational age Other: Cervical Exam: Extrem General: pedal edema Office Procedures OB NST Non-Stress Test Heart Rate Baseline: 130 Heart Rate Variability: moderate Movement: Present Heart Rate Accelerations: Present Decelerations: Absent Contractions: Absent Impression: Yes Reactive Non-Stress Test Category 1 Results POC Urinalysis 2 Dip (Clinic) Office Urine Glucose Negative Last Edit by Madeline Salazar on 11/24/19 08:34 Office Urine Protein Negative Last Edit by Madeline Salazar on 11/24/19 08:34 Assessment & Plan Problems 1. Vaginal discharge N89.8 2/3 negative ROM plus 2. Screening for genetic disease carrier status Z13.71 mother is a carrier for medium chain ACyl-CoA dehydrogenase deficiency. FOB needs tested. 3. 39 weeks gestation of Z3A.39 NIPT low risk. carrier and ntd screening declined. 4. Supervision of high risk , antepartum O09.90 PRR BHAVIK 11/28/19 PC Ambrosio boyfriend Nav ([facility]) 5. Obesity affecting in first trimester O99.211 1 tm glucola encouraged healthy weight gain, adequate growth us at 32 weeks and weekly nsts 6. History of depression Z86.59 celexa in past, nothing at present 7. Chlamydia A74.9 8. Herpes simplex vulvovaginitis A60.04 36 week acyclovir 9. Morbid obesity E66.01 presents with SROM- cytotec and plan pitocin Orders Orders: OB NST Today O99.211 POC Urinalysis 2 Dip (Clinic) Today Coding Level of Care Code OB Routine Diagnoses Vaginal discharge N89.8 Screening for genetic disease carrier status Z13.71 39 weeks gestation of Z3A.39 ??Weeks of gestation: 39 weeks Supervision of high risk , antepartum O09.90 Obesity affecting in first trimester O99.211 ??Trimester: first trimester History of depression Z86.59 Chlamydia A74.9 Herpes simplex vulvovaginitis A60.04 ??Herpes simplex infection site: vulvovaginitis Morbid obesity E66.01 Additional Codes Non-Stress Test (28364)
[2019-11-27] MEDS: Lactated Ringers 500 ML 999 ML IV ×2 (13:30→14:53)
[2019-11-27] MEDS: fentaNYL-bupivacaine (epidural) 100 ML BAG EPIDURAL (14:24)
[2019-11-27] MEDS: Oxytocin 30 units/NS 500 ml 30 UNITS/500 ML IV.SOLN 334 UNITS IV (16:53)
--- NOTE | 2019-11-27 17:04 | PCM.OPRPT ---
Problem List (1) Chlamydia Status: Acute (2) History of depression Status: Acute Comment: celexa in past, nothing at present (3) Morbid obesity Status: Acute (4) Obesity affecting Status: Acute Qualifiers: Comment: 1 tm glucola encouraged healthy weight gain, adequate growth us at 32 weeks and weekly nsts (5) Status: Acute Qualifiers: Comment: NIPT low risk. carrier and ntd screening declined. 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 FOB needs tested. (7) Supervision of high risk , antepartum Status: Acute Comment: PRR BHAVIK 11/28/19 PC Ambrosio whitmanpitermiguel a Chopra ([facility]) (8) Vaginal discharge Status: Acute Comment: 2/3 negative ROM plus (9) Genital herpes Status: Chronic Qualifiers: Comment: 36 week acyclovir Vaginal Delivery Maternal Presentation: Spontaneous Rupture of Membranes SROM Medical Reason for Induction: Premature Rupture of Membranes Amniotic Membrane Rupture Type: Spontaneous at home Amniotic Fluid Description: Clear Final BHAVIK: 11/28/19 Gestational age: 39 Weeks and 6 Days Date of Procedure: 11/27/19 Pre-Operative Diagnosis: srom Post-Operative Diagnosis: same Surgery/ Procedure Performed: Spontaneous Vaginal Delivery Type of Anesthesia: Epidural Description of Procedure: Patient began pushing and delivered the head in the OMEGA presentation. The head was delivered atraumatically. The anterior and posterior shoulders delivered without complication followed by the rest of the infant and the was placed on the maternal abdomen. Delayed cord clamping was employed for approximately 60 seconds. Cord was clamped and cut and gentle traction was applied to the cord and the placenta delivered spontaneously immediately following it was noted to be intact with three-vessel cord. The perineum and vagina were inspected and noted to have a small right vaginal laceration on the upper right labia which was repaired with several running locking stitches without complication with 3-0 Vicryl Rapide.. EBL was 300 cc. Patient and infant tolerated delivery well. Presentation: OMEGA Placental Delivery Description: Spontaneous Placenta Disposition: [facility] Cord Vessel Description: 3 Vessels Cord Entanglement: None Estimated Blood Loss: 300 Infant A gender: Male Episiotomy Description: None Laceration: Vaginal Extension/lac, 1st degree Medications given after delivery: IV Pitocin Complications: None
--- NOTE | 2019-11-27 17:28 | NURSING ---
indwelling urinary catheter removed by Dr. Nunn
[2019-11-27 19:40] VITALS: BP 118/66; PULSE 113; RESP 16; TEMP 36.8
[2019-11-28 00:25] VITALS: BP 122/59; PULSE 102; RESP 16; TEMP 36.4; O2SAT 98
[2019-11-28] MEDS: Acetaminophen 500 MG Tablet 1000 MG PO ×2 (00:31→19:35)
[2019-11-28 03:50] VITALS: BP 116/71; PULSE 98; RESP 16; TEMP 36.6; O2SAT 97
--- NOTE | 2019-11-28 07:50 | PCM.PN.OB ---
Subjective: Doing well, no complaints.Pain controlled. Denies CP, SOB, N,V. Ambulating well, tolerating po. Lochia moderate, bottle feeding - Physical Exam Vitals/I&O's: Vital Signs Temp Pulse Resp BP Pulse Ox 97.8 F 98 16 116/71 97 11/28/19 03:50 11/28/19 03:50 11/28/19 03:50 11/28/19 03:50 11/28/19 03:50 Oxygen Delivery Method Room Air Weight: 310 lb Body Mass Index (BMI) 51.5 Intake and Output for Last 24 Hours 11/26/19 11/27/19 11/28/19 23:59 23:59 23:59 Intake Total 2767.35 / 2767.35 Output Total 1100 / 1100 750 / 750 Balance 1667.35 / 1667.35 -750 / -750 General: Alert, Oriented x3 Abdomen: Soft, Non Tender, - - FF below U Current Medications Acetaminophen (Tylenol) 1,000 mg PO Q8H PRN PRN PRN Reason: Pain Score 1-3/10 Last Admin: 11/28/19 00:31 Dose: 1,000 mg Documented by: Bisacodyl (Dulcolax) 10 mg RECTAL UD PRN PRN Reason: If no BM Dibucaine (Dibucaine) 1 applic TOPICAL TID PRN PRN; Protocol PRN Reason: Discomfort Hydrocortisone (Hytone) 1 applic TOPICAL TID PRN PRN; Protocol PRN Reason: Discomfort Methylergonovine Maleate (Methergine) 0.2 mg IM X1 PRN PRN Reason: Excess bleeding/uterine atony Ondansetron HCl (Zofran) 4 mg IV Q4H PRN PRN PRN Reason: Nausea Oxycodone HCl (Oxyir) 5 - 10 mg PO Q4H PRN PRN PRN Reason: Pain Score 4-10/10 Senna/Docusate Sodium (Senokot-S, Chey-Colace) 1 - 2 tablet PO DAILY PRN PRN PRN Reason: Constipation Simethicone (Mylicon) 80 mg PO PCHS PRN PRN Reason: Indigestion/Stomach pain Sodium Chloride () 5 - 15 ml IV UD PRN PRN Reason: SALINE FLUSH Medical Necessity - Tobacco Use Smoking Status: Never smoker Assessment/Plan All Active Problems (Last Reviewed 11/24/19 @ 08:22 by Madeline Salazar) Vaginal discharge (Acute) Screening for genetic disease carrier status (Acute) (Acute) Supervision of high risk , antepartum (Acute) Obesity affecting (Acute) History of depression (Acute) Chlamydia (Acute) Morbid obesity (Acute) Decreased movement (Resolved) heart deceleration (Resolved) Severe depression (Resolved) Supervision of normal (Resolved) s/p PPD # 1 1. routine post delivery care 2. bottle feeding- support given 3. rh positive 4. rubella immune
[2019-11-28 08:25] VITALS: BP 132/76; PULSE 95; RESP 18; TEMP 36.3
[2019-11-28 12:00] VITALS: BP 113/61; PULSE 92; RESP 18; TEMP 37.2
[2019-11-28 16:00] VITALS: BP 102/56; PULSE 87; RESP 18; TEMP 37.2
[2019-11-28 19:36] VITALS: BP 130/78; PULSE 91; RESP 16; TEMP 36.6
[2019-11-29 02:22] VITALS: BP 118/67; PULSE 87; RESP 16; TEMP 36.6
--- NOTE | 2019-11-29 07:40 | PCM.PN.OB ---
Subjective: Doing well, no complaints.Pain controlled. Denies CP, SOB, N,V. Ambulating well, tolerating po. Lochia moderate, bottle feeding. - Physical Exam Vitals/I&O's: Vital Signs Temp Pulse Resp BP Pulse Ox 97.9 F 87 16 118/67 97 11/29/19 02:22 11/29/19 02:22 11/29/19 02:22 11/29/19 02:22 11/28/19 03:50 Oxygen Delivery Method Room Air Weight: 310 lb Body Mass Index (BMI) 51.5 Intake and Output for Last 24 Hours 11/27/19 11/28/19 11/29/19 23:59 23:59 23:59 Intake Total 2767.35 / 2767.35 Output Total 1100 / 1100 750 / 750 Balance 1667.35 / 1667.35 -750 / -750 General: Alert, Oriented x3 Abdomen: Soft, Non Tender, Non-Distended, - - FF below U Current Medications Acetaminophen (Tylenol) 1,000 mg PO Q8H PRN PRN PRN Reason: Pain Score 1-3/10 Last Admin: 11/28/19 19:35 Dose: 1,000 mg Documented by: Bisacodyl (Dulcolax) 10 mg RECTAL UD PRN PRN Reason: If no BM Dibucaine (Dibucaine) 1 applic TOPICAL TID PRN PRN; Protocol PRN Reason: Discomfort Hydrocortisone (Hytone) 1 applic TOPICAL TID PRN PRN; Protocol PRN Reason: Discomfort Methylergonovine Maleate (Methergine) 0.2 mg IM X1 PRN PRN Reason: Excess bleeding/uterine atony Ondansetron HCl (Zofran) 4 mg IV Q4H PRN PRN PRN Reason: Nausea Oxycodone HCl (Oxyir) 5 - 10 mg PO Q4H PRN PRN PRN Reason: Pain Score 4-10/10 Senna/Docusate Sodium (Senokot-S, Chey-Colace) 1 - 2 tablet PO DAILY PRN PRN PRN Reason: Constipation Simethicone (Mylicon) 80 mg PO PCHS PRN PRN Reason: Indigestion/Stomach pain Sodium Chloride () 5 - 15 ml IV UD PRN PRN Reason: SALINE FLUSH Medical Necessity - Tobacco Use Smoking Status: Never smoker Assessment/Plan All Active Problems (Last Reviewed 11/24/19 @ 08:22 by Madeline Salazar) Vaginal discharge (Acute) Screening for genetic disease carrier status (Acute) (Acute) Supervision of high risk , antepartum (Acute) Obesity affecting (Acute) History of depression (Acute) Chlamydia (Acute) Morbid obesity (Acute) Decreased movement (Resolved) heart deceleration (Resolved) Severe depression (Resolved) Supervision of normal (Resolved) s/p PPD # 2 1. routine post delivery care 2. bottle feeding- support given 3. rh positive 4. rubella immune 5. home today
--- NOTE | 2019-11-29 07:41 | DCINST_ITS ---
Additional Instructions: If you experience any of the following, contact your healthcare provider. * Bleeding that soaks a pad every hour for 2 hours * Fever 100.4 or higher * Unrelieved incision or abdominal pain * Swelling, redness, discharge or bleeding from your incision or episiotomy site * Your incision begins to separate * Problems urinating (including inability to urinate or burning while urinating). * Visual changes * Severe headache * Flu-like symptoms * Pain or redness in one of both of your breasts * Pain, warmth, tenderness or swelling in your legs, especially the calf area * Frequent nausea and vomiting * Symptoms of depression or anxiety If you experience any of the following, call 911 or go to the nearest Emergency Room. * Chest pain * Problems breathing * Seizure activity * Partial or complete paralysis of a body part, slurred speech, weakness or drooping of the face, or a sudden inability to walk or hold your balance Allergies/Adverse Reactions: Allergies ibuprofen Allergy (Intermediate, Verified 11/26/19 23:35) Shortness of breath Medications to take at Discharge vitamin#30 30 mg iron-10 mg iron-folic acid 1 mg-omg3 capsule 1 cap PO DAILY cap 04/11/19 Valacyclovir HCl [Valacyclovir] 500 mg PO DAILY 11/26/19 Primary Care Physician: Eren Donaldson MD [Primary Care Provider] - Test Results: Test results from this visit will be discussed in further detail at your follow- up appointment, if applicable.
--- NOTE | 2019-11-29 07:41 | PCM.DCVAG ---
Additional Instructions: If you experience any of the following, contact your healthcare provider. Bleeding that soaks a pad every hour for 2 hours Fever 100.4 or higher Unrelieved incision or abdominal pain Swelling, redness, discharge or bleeding from your incision or episiotomy site Your incision begins to separate Problems urinating (including inability to urinate or burning while urinating). Visual changes Severe headache Flu-like symptoms Pain or redness in one of both of your breasts Pain, warmth, tenderness or swelling in your legs, especially the calf area Frequent nausea and vomiting Symptoms of depression or anxiety If you experience any of the following, call 911 or go to the nearest Emergency Room. Chest pain Problems breathing Seizure activity Partial or complete paralysis of a body part, slurred speech, weakness or drooping of the face, or a sudden inability to walk or hold your balance Allergies/Adverse Reactions: Allergies ibuprofen Allergy (Intermediate, Verified 11/26/19 23:35) Shortness of breath Medications to take at Discharge vitamin#30 30 mg iron-10 mg iron-folic acid 1 mg-omg3 capsule 1 cap PO DAILY cap 04/11/19 Valacyclovir HCl [Valacyclovir] 500 mg PO DAILY 11/26/19 Primary Care Physician: Eren Donaldson MD [Primary Care Provider] - Test Results: Test results from this visit will be discussed in further detail at your follow-up appointment, if applicable.
[2019-11-29 08:23] VITALS: BP 102/44; PULSE 69; RESP 16; TEMP 36.5; O2SAT 96
[2019-11-29 11:58] VITALS: BP 122/82; PULSE 97; RESP 16; TEMP 36.6; O2SAT 97
== END 2019-11-29 13:50 | disposition home or self-care (01) | DRG 806 ==
PROVIDERS: Admitting Provider Obstetrics & Gynecology; PCP Family Medicine; Visit Provider Obstetrics & Gynecology
DX: O99.214 Obesity complicating childbirth (principal); O98.32 Other infections with a predominantly sexual mode of transmission complicating childbirth; Z37.0 Single live birth; E66.01 Morbid (severe) obesity due to excess calories; O99.334 Smoking (tobacco) complicating childbirth; F17.200 Nicotine dependence, unspecified, uncomplicated; A60.00 Herpesviral infection of urogenital system, unspecified; O71.4 Obstetric high vaginal laceration alone; Z3A.39 39 weeks gestation of pregnancy
CPT/HCPCS: 59025; 59050; 84112; 85025; 86850; 86900; 86901; 99218; J7120; A4216; G0378

== ENCOUNTER 2020-08-04 23:29 | Emergency (ER) | payer BC, MEDICAID, SELFPAY ==
[2020-02-29 10:22] VITALS: BMI 51.5
[2020-08-04 23:29] VITALS: BP 158/103; PULSE 91; RESP 16; TEMP 36.3; O2SAT 99; BMI 47.7
--- NOTE | 2020-08-04 23:54 | ED.DCSUM_ITS ---
- ER Visit Summary Date of Service: 08/04/20 Chief Complaint: Abdominal pain History of Present Illness: The patient is a 20 F who presents with abdominal pain that began tonight. Patient states she was watching TV when the pain began. Patient states the pain is over the right mid abdomen. Patient descri bes the pain as sharp. Patient states nothing makes it better or worse. Patient denies any fevers or chills. Patient admits to nausea but denies any vomiting. Patient denies any diarrhea, melena, or hematochezia. Patient denies any dysuria or hematuria. Patient denies any chest pain or shortness of breath. Physical Examination: Vital signs are stable. Patient is afebrile. Patient is in no acute distress. Oral mucosa is pink and moist. Neck is supple. Trachea is midline. There is no JVD noted. Heart was regular rate and rhythm. Lungs are clear and equal bilaterally. Abdomen is soft. Bowel sounds are normal. There is mild tenderness over the right mid abdomen. There is no rebound or guarding noted. Skin is warm dry. Cranial nerves II through XII are intact. There are no focal motor or sensory deficits noted. Extremities are intact. There is no calf tenderness or edema. Test Results: CBC shows a slight leukocytosis of 12.3. Comprehensive metabolic profile was within normal limits. Lipase was normal. Urinalysis does not show any evidence of urinary tract infection. Serum hCG was negative. CT scan of the abdomen and pelvis was obtained. There is no acute intra-abdominal process. This was interpreted by the radiologist and reviewed by myself. Emergency Department Course and Treatment: Patient was given IV fluids. Patient was given morphine and Zofran. Patient is feeling better on reevaluation. Patient was instructed to follow-up with her primary care physician in 5 to 7 days. Patient understood and was agreeable with the plan. All questions were answered. Disposition: Discharge home Impression: Abdominal pain This note was generated with [employer] dictation software. It may contain incorrect words, spelling, and punctuation that were not noted in review of the chart prior to signing ED Disposition - Plan for ED Patient: Disposition: Home or Assisted Living Diagnosis: Abdominal pain Instructions: ED Abdominal Pain Unkn Cause Fem Referrals: Eren Donaldson MD [Primary Care Provider] - 3-5 Days
[2020-08-05] MEDS: Ondansetron 4 MG/2 ML Vial IV (00:04)
[2020-08-05] MEDS: Morphine 4 MG/ML Syringe IV (00:04)
[2020-08-05] MEDS: 0.9% Normal Saline 1,000 ML 1000 ML IV (00:04)
[2020-08-05 00:06] LABS: Bacteria 0 SEEN /hpf (None Seen); Mucous, Urine 0 SEEN /hpf (<or=2+); Red Blood Cells-Urine 0 SEEN /hpf (0-5); White Blood Cells 0 SEEN /hpf (0-5)
[2020-08-05 00:18] LABS: Absolute Lymphocyte Count 3.51 X10^3/uL (0.83-4.51); Absolute Neutrophil Count 7.6 X10^3/uL (2.0-7.7); Basophil# 0.04 X10^3/uL; Basophil% 0.3 % (0-1); Eosinophil# 0.41 X10^3/uL; Eosinophils% 3.3 % (0-5); Hematocrit 41.5 % (37-47); Hemoglobin 13.9 g/dL (12.0-15.0); Lymphocyte # 3.51 X10^3/ul (4.0); Lymphocyte % 28.6 % (19-41); Mean Corp Hgb Conc 33.5 g/dL (32-36); Mean Corpuscular Volume 89.6 fL (81-99); Mean Platelet Vol. 10.9 fl (6.2-12.0); Monocyte# 0.74 X10^3/uL; NRBC Flagged by Analyzer 0 % (0-5); Neutrophil # 7.55 X10^3/uL (2.7-7.7); Neutrophil % 61.5 % (47-70); Platelet Count 228 K/mm3 (150-450); RBC Distribution Width CV 12.1 % (11.6-14.6); RBC Distribution Width SD 39.8 fl (35.1-43.9); Red Blood Count 4.63 M/mm3 (4.2-5.4); White Blood Count 12.3 K/mm3 (4.4-11.0)
[2020-08-05 00:23] LABS: Color, Urine Yellow (Yellow); Glucose, Dipstick Normal (Normal); Ketone-Dipstick Negative (Negative); Leukocyte Esterase-Dipstick Negative /ul (Negative); Nitrite-Dipstick Negative (Negative); Occult Blood-Urine Negative /ul (Negative); Protein-Dipstick Negative (Negative); Specific Gravity, Urine 1.015 (1.002-1.030); Urine Bilirubin Dipstick Negative (Negative); Urine Clarity Clear (Clear); Urine Urobilinogen Normal (Normal)
[2020-08-05 00:31] LABS: Internal QC Validated? YES +Cl - CLEAR BKGD; Pregnancy, Serum, hCG Quali. NEGATIVE Negative
[2020-08-05 00:31] LABS: Squamous Epithelial Cells - UA 0-5 SEEN /hpf (5-10)
--- NOTE | 2020-08-05 01:30 | CT_ITS ---
STUDY: CT ABDOMEN AND PELVIS WITH CONTRAST REASON FOR EXAM: Female, 20 years old. RLQ PAIN/NAUSEA RADIATION DOSAGE (If Supplied By Facility): CTDIvol = ( 17.07 ) mGy, DLP = ( 1369.53 ) mGycm TECHNIQUE: Transaxial images were obtained from the dome of the diaphragm to the symphysis pubis without oral contrast. Oral and amp; IV Gastrografin and amp; 100mL Isovue-300 was administered. Sagittal and coronal images were reconstructed. Individualized dose optimization techniques were used for this CT. COMPARISON: None. FINDINGS: The visualized lung bases are unremarkable. The visualized portions of the heart are within normal limits. Normal liver. Normal gallbladder and extrahepatic biliary system. Normal spleen. Normal pancreas. Normal bilateral adrenal glands. Normal right kidney. Normal left kidney. Normal visualized stomach. Normal small intestine. Normal colon. The appendix is visualized and appears normal. Normal abdominal aorta. Normal inferior vena cava. Normal retroperitoneum. Normal urinary bladder. Normal abdominal wall. Normal osseous structures. CT/Abdomen/Pelvis WITH Contrast IMPRESSION: Normal enhanced CT of the abdomen and pelvis. Electronically Signed: Gudelia Baer, at 2:36 EDT Tel , Service support ,
[2020-08-05 01:31] LABS: ALB/GLOB Ratio 0.7 RATIO (0.9-2.4); AST(SGOT) 15 U/L (15-37); Alanine Aminotransfer ALT/SGPT 11 U/L (13-56); Alkaline Phosphatase 63 U/L (45-117); Anion Gap 5 (5-15); BUN 9 mg/dL (7-18); BUN/Creat Ratio 12.7 RATIO (10-20); Calcium,Total 8.6 mg/dL (8.5-10.1); Chloride 110 mmol/L (98-107); Creatinine, Serum 0.71 mg/dL (0.55-1.02); EST Glomerular Filtration Rate 110 mL/min (>60); Est Glom Filt Rate - Afr Amer 133 mL/min (>60); Estimated Creatinine Clearance 111.84 ml/min; Globulin 4.3 g/dL (2.2-4.2); Glucose 90 mg/dL (74-106); Lipase 66 U/L (73-393); Potassium 4.1 mmol/L (3.5-5.1); Protein, Total 7.3 g/dL (6.4-8.2); Sodium Level 139 mmol/L (136-145)
[2020-08-05 02:02] VITALS: BP 133/62; PULSE 71; RESP 14; O2SAT 99
[2020-08-05 03:34] VITALS: BP 134/70; PULSE 80; RESP 16; O2SAT 98
== END 2020-08-05 03:35 | disposition home or self-care (01) ==
PROVIDERS: Emergency Provider Emergency Medicine; PCP Family Medicine
DX: R10.9 Unspecified abdominal pain (principal); R11.0 Nausea; E66.9 Obesity, unspecified; F17.210 Nicotine dependence, cigarettes, uncomplicated
CPT/HCPCS: 74177; 80053; 81001; 83690; 84703; 85025; 96361; 96374; 96375; 99282; J7030; Q9967; A4216; J2405

== ENCOUNTER → 2022-08-05 | Outpatient (CLI) | payer OTHER, MEDICAID, SELFPAY ==
[2022-08-25 18:58] LABS: HPV Reflexed? NOT INDICATED
== END | disposition home or self-care (01) ==
PROVIDERS: PCP Nurse Practitioner Women's Health; Visit Provider Nurse Practitioner Women's Health
DX: Z12.4 Encounter for screening for malignant neoplasm of cervix (principal)
CPT/HCPCS: 88175; G0145

== ENCOUNTER 2023-01-30 14:25 | Emergency (ER) | payer OTHER, MEDICAID, SELFPAY ==
[2023-01-30 14:26] VITALS: BP 163/108; PULSE 100; RESP 18; TEMP 36.4; O2SAT 96; BMI 43.0
--- NOTE | 2023-01-30 15:25 | EDS_ITS ---
HPI History of Present Illness Chief Complaint: Nausea/Vomiting/Diarrhea Informant: patient Onset/Context/Timing Onset: Yesterday Context: Gradual Onset Current Severity: Moderate Maximum Severity: Moderate Narrative Narrative: Patient presents with nausea, vomiting, and diarrhea that started yesterday evening. She is not unable to keep anything down today. She had some mild pain in the left lower quadrant. No history of diverticulitis. No blood noted in the emesis or stool. She has not had a fever. PFSH PFSH Medical History Genital herpes History of depression Home Medications desogestrel 0.15 mg-ethinyl estradiol 0.03 mg tablet 1 tab PO DAILY #84 tabs 08/05/22 [Rx Last Taken Unknown] amoxicillin 875 mg-potassium clavulanate 125 mg tablet 1 tab PO Q12H #14 tabs 09/12/22 [Rx Last Taken Unknown] ondansetron 4 mg disintegrating tablet 4 mg PO Q8H PRN PRN Nausea #10 tabs 01/30/23 [Rx Last Taken Unknown] Allergy/AdvReac Type Severity Reaction Status Date / Time ibuprofen Allergy Intermediate Shortness Verified 01/30/23 14:28 of breath Surgical History History of tonsillectomy Social History Smoking Status: Current every day smoker tobacco type: cigarettes alcohol intake: never substance use type: does not use caffeine: Yes what type of physical activity do you participate in: none seatbelt use: always do you feel safe at home: Yes ROS ROS ED Constitutional Constitutional ED: Denies chills or fever(s) Eyes Eyes: Denies change in vision or discharge from eye(s) ENT ENT ED: Denies discharge from eye(s), rhinorrhea or sore throat Cardiovascular Cardiovascular: Denies chest pain or palpitations Respiratory/Chest Respiratory/Chest: Denies cough or dyspnea Gastrointestinal Gastrointestinal: Reports abdominal pain, diarrhea, nausea and vomiting Genitourinary Genitourinary ED: Denies dysuria Musculoskeletal Musculoskeletal: Denies back pain or extremity pain Integumentary Denies Abrasions or rash Neurologic Neurologic: Denies headache(s) or weakness Psychiatric Psychiatric: Denies anxiety or depression Allergic/Immunologic Allergic/Immunologic ED: Denies lip swelling or urticaria EXAM Physical Exam Const Vital Signs: 01/30/23 14:26 Temperature 97.6 F L Temperature Source Temporal Pulse Rate 100 Respiratory Rate 18 Blood Pressure 163/108 H Blood Pressure Mean 126 Pulse Ox 96 Oxygen Delivery Method Room Air Positive well nourished and well developed General Appearance ED: well developed HEENT Reports normocephalic and head/scalp atraumatic Eyes PERRL and EOMs intact bilaterally Neck supple Chest Wall inspection of chest normal and palpation of chest normal Resp normal respiratory effort and clear to auscultation bilaterally Cardio regular rate and regular rhythm GI GI Narrative: Abdomen soft with minimal tenderness in the left lower quadrant. No guarding or rebound. Hypoactive but present bowel sounds are noted. Palpation: soft Extremity normal to inspection Neuro oriented x3 and no sensory deficits noted Sensorium / Orientation: alert Motor Exam: strength 5/5 throughout Psych mental status grossly normal Skin no rashes or lesions noted MDM MDM MDM Narrative Medical decision making narrative: Patient given IV fluids as well as Zofran and Bentyl. Labwork obtained to evaluate for leukocytosis, anemia, and electrolyte derangement. Urinalysis obtained to evaluate for infection/hematuria. Lab Data Attestation: I reviewed the patient's lab results. Labs: Laboratory Results - last 24 hr 01/30/23 01/30/23 01/30/23 15:45 15:45 15:45 WBC 7.9 RBC 5.11 Hgb 15.9 H Hct 45.6 MCV 89.2 MCH 31.1 MCHC 34.9 RDW Std Deviation 39.6 RDW Coeff of Erich 12.1 Plt Count 228 MPV 10.6 Immature Gran % (Auto) 0.400 Neut % (Auto) 82.2 H Lymph % (Auto) 10.2 L Hood % (Auto) 6.3 Eos % (Auto) 0.5 Baso % (Auto) 0.4 Absolute Neuts (auto) 6.5 Absolute Lymphs (auto) 0.81 L Nucleated RBC % 0 Sodium 137 Potassium 3.4 L Chloride 109 H Carbon Dioxide 21.0 Anion Gap 7 BUN 7 Creatinine 0.63 Estim Creat Clear Calc 127.79 Est GFR (MDRD) Af Amer 147 Est GFR (MDRD) Non-Af 122 BUN/Creatinine Ratio 11.1 Glucose 100 Calcium 9.2 Serum , Qual NEGATIVE Urine Color Urine Clarity Urine pH Ur Specific [place] Urine Protein Urine Glucose (UA) Urine Ketones Urine Occult Blood Urine Nitrite Urine Bilirubin Urine Urobilinogen Ur Leukocyte Esterase 01/30/23 16:47 WBC RBC Hgb Hct MCV MCH MCHC RDW Std Deviation RDW Coeff of Erich Plt Count MPV Immature Gran % (Auto) Neut % (Auto) Lymph % (Auto) Hood % (Auto) Eos % (Auto) Baso % (Auto) Absolute Neuts (auto) Absolute Lymphs (auto) Nucleated RBC % Sodium Potassium Chloride Carbon Dioxide Anion Gap BUN Creatinine Estim Creat Clear Calc Est GFR (MDRD) Af Amer Est GFR (MDRD) Non-Af BUN/Creatinine Ratio Glucose Calcium Serum , Qual Urine Color Yellow Urine Clarity Clear Urine pH 5.0 Ur Specific [place] 1.025 Urine Protein 30 H Urine Glucose (UA) Normal Urine Ketones 150 A* Urine Occult Blood 50 H Urine Nitrite Negative Urine Bilirubin Negative Urine Urobilinogen Normal Ur Leukocyte Esterase Negative Treatment and Re-Evaluation :: CBC was normal white count. Hemoglobin slightly concentrated at 15.9. Chemistry studies reveal potassium of 3.4, otherwise normal values. test negative. Urinalysis significant for 150 ketones but no sign of infection. At this time patient is able to tolerate water and ice chips. She will be given prescription for Zofran at home. Return instructions given. Discharge Plan Triage Chief Complaint: Nausea/Vomiting/Diarrhea ED Provider: Radha Martin Dx/Rx/DC Orders Clinical Impression: Viral gastroenteritis Instructions: ED Gastroenteritis, Viral (Adult) Prescriptions: New ondansetron 4 mg tablet,disintegrating 4 mg PO Q8H PRN PRN (Reason: Nausea) Qty: 10 0RF No Action desogestrel-ethinyl estradiol 0.15-0.03 mg tablet 1 tab PO DAILY Qty: 84 4RF amoxicillin-pot clavulanate 875-125 mg tablet 1 tab PO Q12H Qty: 14 0RF Primary Care Provider: Eren Donaldson Referrals: Eren Donaldson MD [Primary Care Provider] - As Needed Disposition Disposition: Home, Self Care
[2023-01-30] MEDS: 0.9% Normal Saline 1,000 ML 1000 ML IV (15:52)
[2023-01-30 15:55] LABS: Absolute Lymphocyte Count 0.81 X10^3/uL (0.83-4.51); Absolute Neutrophil Count 6.5 X10^3/uL (2.0-7.7); Basophil# 0.03 X10^3/uL; Basophil% 0.4 % (0-1); Eosinophil# 0.04 X10^3/uL; Eosinophils% 0.5 % (0-5); Hematocrit 45.6 % (37-47); Hemoglobin 15.9 g/dL (12.0-15.0); Lymphocyte # 0.81 X10^3/ul (0.83-4.51); Lymphocyte % 10.2 % (19-41); Mean Corp Hgb Conc 34.9 g/dL (32-36); Mean Corpuscular Hgb 31.1 pg (27.0-32.0); Mean Corpuscular Volume 89.2 fL (81-99); Mean Platelet Vol. 10.6 fl (6.2-12.0); Monocyte% 6.3 % (0-10); NRBC Flagged by Analyzer 0 % (0-5); Neutrophil # 6.53 X10^3/uL (2.7-7.7); Neutrophil % 82.2 % (47-70); Platelet Count 228 K/mm3 (150-450); RBC Distribution Width CV 12.1 % (11.6-14.6); RBC Distribution Width SD 39.6 fl (35.1-43.9); Red Blood Count 5.11 M/mm3 (4.2-5.4); White Blood Count 7.9 K/mm3 (4.4-11.0)
[2023-01-30] MEDS: Dicyclomine 20 MG/2 ML Vial IM (15:55)
[2023-01-30 16:05] LABS: Internal QC Validated? YES +Cl - CLEAR BKGD; Pregnancy, Serum, hCG Quali. NEGATIVE Negative
[2023-01-30 16:10] LABS: Anion Gap 7 (5-15); BUN 7 mg/dL (7-18); BUN/Creat Ratio 11.1 RATIO (10-20); Calcium,Total 9.2 mg/dL (8.5-10.1); Chloride 109 mmol/L (98-107); Creatinine, Serum 0.63 mg/dL (0.55-1.02); EST Glomerular Filtration Rate 122 mL/min (>60); Est Glom Filt Rate - Afr Amer 147 mL/min (>60); Estimated Creatinine Clearance 127.79 ml/min; Glucose 100 mg/dL (74-106); Potassium 3.4 mmol/L (3.5-5.1); Sodium Level 137 mmol/L (136-145)
[2023-01-30 16:53] LABS: White Blood Cells 0 SEEN /hpf (0-5)
[2023-01-30] MEDS: 0.9% Normal Saline 1,000 ML 150 ML IV (17:10)
[2023-01-30 17:39] LABS: Color, Urine Yellow (Yellow); Glucose, Dipstick Normal (Normal); Leukocyte Esterase-Dipstick Negative /ul (Negative); Nitrite-Dipstick Negative (Negative); Occult Blood-Urine 50 /ul (Negative); Protein-Dipstick 30 mg/dl (Negative); Specific Gravity, Urine 1.025 (1.002-1.030); Urine Bilirubin Dipstick Negative (Negative); Urine Clarity Clear (Clear); Urine Urobilinogen Normal (Normal)
[2023-01-30 17:42] LABS: Ketone-Dipstick 150 mg/dl (Negative)
[2023-01-30 18:03] LABS: Squamous Epithelial Cells - UA 0-5 SEEN /hpf (5-10)
[2023-01-30 18:04] LABS: Bacteria RARE /hpf (None Seen); Mucous, Urine 1+ /hpf (<or=2+); Red Blood Cells-Urine 0-5 SEEN /hpf (0-5)
[2023-01-30] MEDS: Ondansetron ODT 4 MG Tablet PO (18:05)
[2023-01-30 18:09] VITALS: PULSE 86; RESP 16; O2SAT 98
== END 2023-01-30 18:12 | disposition home or self-care (01) ==
PROVIDERS: Emergency Provider Emergency Medicine; PCP Family Medicine; Visit Provider Emergency Medicine
DX: A08.4 Viral intestinal infection, unspecified (principal); F17.210 Nicotine dependence, cigarettes, uncomplicated; F32.9 Major depressive disorder, single episode, unspecified
CPT/HCPCS: 80048; 81001; 84703; 85025; 99284

== ENCOUNTER → 2023-03-25 | Outpatient (CLI) | payer OTHER, MEDICAID, SELFPAY ==
[2023-03-25 14:39] LABS: Internal QC Validated? YES +Cl - CLEAR BKGD; Monotest Negative (Negative)
== END | disposition home or self-care (01) ==
PROVIDERS: PCP Family Medicine
DX: R59.0 Localized enlarged lymph nodes (principal)
CPT/HCPCS: 86308

== ENCOUNTER → 2023-09-14 | Outpatient (CLI) | payer OTHER, SELFPAY ==
--- NOTE | 2023-09-14 14:28 | BI_ITS ---
MAMMOGRAPHY - BILATERAL DIAGNOSTIC REASON FOR EXAM: Female, 23 years old. Left breast lump. PERTINENT HISTORY: Non-contributory. TECHNIQUE: Digital bilateral breast corie (3D mammographic acquisition) in the CC and MLO projections. 2-D mediolateral oblique (MLO) and craniocaudad (CC) views of both breasts were obtained. CAD: Full Field Digital Mammography with Computer Added Detection was performed. COMPARISON: None. Baseline examination. FINDINGS: Breast Composition: The breasts are almost entirely fatty. There are no dominant masses or suspicious calcifications. No other significant abnormalities are identified. BI/DIAG MAMM W/CAD, BILAT IMPRESSION: Negative diagnostic mammogram. With the patient''s history of a palpable lump in the slightly upper lateral aspect of the anterior left breast, correlation with ultrasound is recommended. ASSESSMENT CATEGORY: BIRADS Category 0: Incomplete. Need additional imaging evaluation. A letter regarding these results will be sent to the patient by the facility within 30 days. Approximately 10% of breast cancers are not detected by mammography. A normal mammogram should not delay biopsy of a clinically suspicious abnormality. Electronically Signed: Rylan Samano MD at 15:14 EST ,
--- NOTE | 2023-09-14 14:28 | US_ITS ---
STUDY: ULTRASOUND BREAST - LEFT REASON FOR EXAM: Female, 23 years old. Palpable lump left breast. TECHNIQUE: Axial and longitudinal images of the LEFT breast were performed with a high resolution ultrasound transducer. # OF IMAGES: 13 COMPARISON: Comparison is made with prior mammogram done earlier today. FINDINGS: LEFT Breast: The upper-outer quadrant of the left breast was examined with ultrasound. No sonographic abnormality is seen. US/Breast Limited Unilateral IMPRESSION: No sonographic abnormality is seen. ASSESSMENT CATEGORY: BIRADS Category 1: Negative. A letter regarding these results will be sent to the patient by the facility within 30 days. Electronically Signed: Rylan Samano MD at 10:03 EST ,
== END | disposition home or self-care (01) ==
PROVIDERS: PCP Family Medicine; Referring Provider Obstetrics & Gynecology; Visit Provider Obstetrics & Gynecology
DX: N63.10 Unspecified lump in the right breast, unspecified quadrant (principal)
CPT/HCPCS: 76642; 77062; 77066; G0279

== ENCOUNTER 2024-10-15 17:06 | Emergency (ER) | payer OTHER, SELFPAY ==
[2024-10-15 17:06] VITALS: BP 175/116; PULSE 109; RESP 18; TEMP 36.8; O2SAT 97; BMI 40.0
--- NOTE | 2024-10-15 17:23 | EDS_ITS ---
HPI History of Present Illness Chief Complaint: Allergic Reaction Informant: patient Narrative Narrative: Patient presents for itchy urticaria all over her body that started about 2 hours after she took first dose of Augmentin that was prescribed to her for a sinus infection that she has had for almost 2 weeks. She is having pain in her teeth, headache, pain and pressure in her face, blowing green and white thick substance out of her nose on occasion, has had sinus infections in the past that have responded to antibiotics and she was prescribed this by urgent care. She has had amoxicillin in the past and this is the first time she is ever had an allergic reaction to it. She was also taken Tylenol cold and flu but she has been taking that for the last several days or weekend no abnormal symptoms with that. She states she is feeling a little bit of a frog in my throat but is not completely out of breath. She has had no presyncopal or syncopal symptoms or edema of her hands or feet. She has taken no medications yet for this. She states after taking the first pill, she went took a nap and woke up in this condition. [facility] Medical History History of depression Genital herpes Home Medications ?Medication ?Instructions ?Recorded ?Last Taken ?Type desogestrel 0.15 mg-ethinyl 1 tab PO DAILY #84 tabs 09/02/24 Unknown Rx estradiol 0.03 mg tablet amoxicillin 875 mg-potassium 1 tab PO BID 10/15/24 Unknown History clavulanate 125 mg tablet cefdinir 300 mg capsule 300 mg PO BID #14 caps 10/15/24 Unknown Rx prednisone 20 mg tablet 40 mg (2 x 20 mg) PO DAILY 2 days 10/15/24 Unknown Rx #4 tabs Allergy/AdvReac Type Severity Reaction Status Date / Time amoxicillin (From Augmentin) Allergy Intermediate Rash Verified 10/15/24 17:07 clavulanic acid (From Allergy Intermediate Rash Verified 10/15/24 17:07 Augmentin) ibuprofen Allergy Intermediate Shortness Verified 09/02/24 14:46 of breath Surgical History History of tonsillectomy Social History Smoking Status: Light Smoker (<10/day) Electronic Cigarette Use: with nicotine alcohol intake: current details: occasionally substance use type: does not use caffeine: Yes what type of physical activity do you participate in: none seatbelt use: always do you feel safe at home: Yes ROS ROS ED Constitutional Constitutional ED: Denies chills or fever(s) Eyes Eyes: Denies change in vision or diplopia ENT ENT ED: Reports facial pain and sinus pain; Denies rhinorrhea or sore throat Cardiovascular Cardiovascular: Denies chest pain, lightheadedness, orthostatic symptoms, palpitations or syncope Respiratory/Chest Respiratory/Chest: Denies cough or dyspnea Gastrointestinal Gastrointestinal: Denies abdominal pain, diarrhea, nausea or vomiting Genitourinary Genitourinary ED: Denies dysuria or hematuria Musculoskeletal Musculoskeletal: Denies back pain or neck pain Integumentary Reports rash; Denies abscess Neurologic Neurologic: Reports headache(s); Denies paresthesias or weakness Psychiatric Psychiatric: Denies anxiety or suicidal thoughts EXAM Physical Exam Const Vital Signs: 10/15/24 17:06 10/15/24 18:06 10/15/24 19:00 Temperature 98.2 F Temperature Source Oral Pulse Rate 109 H 74 73 Respiratory Rate 18 18 18 Blood Pressure 175/116 H 144/86 H 140/78 H Blood Pressure Mean 135 105 98 Pulse Ox 97 100 100 Oxygen Delivery Method Room Air Room Air Room Air 10/15/24 19:20 Temperature Temperature Source Pulse Rate 75 Respiratory Rate 18 Blood Pressure 123/76 H Blood Pressure Mean 91 Pulse Ox 99 Oxygen Delivery Method Room Air Positive well nourished and well developed General Appearance ED: well developed and NAD HEENT Reports moist mucous membranes HEENT Narrative: Posterior oropharynx clear. No oral lesions. No angioedema of tongue or lips. No stridor. No dysphonia. Eyes PERRL and EOMs intact bilaterally Neck full ROM and supple Resp normal respiratory effort and clear to auscultation bilaterally Cardio regular rate, regular rhythm and no murmurs Extremity General Extremety ED: Negative for edema or tenderness General Extremity: Negative for edema Neuro oriented x3, CN's II-XII intact bilaterally and no sensory deficits noted Sensorium / Orientation: awake and alert Motor Exam: strength 5/5 throughout Skin no wounds Skin Narrative: Diffuse urticaria MDM MDM MDM Narrative Medical decision making narrative: Patient was monitored for 2-3 hours, given Benadryl, prednisone, Pepcid, she is doing much better on reevaluation. Still feels like she has a little bit of a lump in her throat, vital signs are normal, she is not having problems swallowing or breathing and I think she stable to be discharged home. Hives are much better. She was advised to use Benadryl if they return, prescribe 2 more days of prednisone and prescribed cefdinir which she has taken and tolerated in the past to replace to the sinusitis treatment. Discharge Plan Triage Chief Complaint: Allergic Reaction ED Provider: Rufino Charles Dx/Rx/DC Orders Clinical Impression: Allergic reaction due to antibacterial drug, Acute sinusitis Instructions: ED Drug Reaction, Other Prescriptions: New prednisone 20 mg tablet 40 mg PO DAILY 2 Days Qty: 4 0RF cefdinir 300 mg capsule 300 mg PO BID Qty: 14 0RF No Action desogestrel-ethinyl estradiol 0.15-0.03 mg tablet 1 tab PO DAILY Qty: 84 4RF amoxicillin-pot clavulanate 875-125 mg tablet 1 tab PO BID Patient Comments: pt has allergic rx to med Primary Care Provider: Eren Donaldson Referrals: Eren Donaldson MD [Primary Care Provider] - As Needed Activity Restrictions/Additional Instructions: Prednisone is once daily so since you received a dose in the ER, you can start the prescription anytime tomorrow 10/16. Print Language: Hebrew Disposition Disposition: Home, Self Care
[2024-10-15] MEDS: Famotidine 20 MG Tablet 40 MG PO (17:31)
[2024-10-15] MEDS: DiphenhydrAMINE 25 MG Capsule 50 MG PO (17:31)
[2024-10-15] MEDS: predniSONE 20 MG Tablet 40 MG PO (17:31)
[2024-10-15 18:06] VITALS: BP 144/86; PULSE 74; RESP 18; O2SAT 100
[2024-10-15 19:00] VITALS: BP 140/78; PULSE 73; RESP 18; O2SAT 100
[2024-10-15 19:20] VITALS: BP 123/76; PULSE 75; RESP 18; O2SAT 99
[2024-10-15 20:00] VITALS: BP 144/85; PULSE 79; RESP 18; TEMP 36.8; O2SAT 99
== END 2024-10-15 20:01 | disposition home or self-care (01) ==
PROVIDERS: Emergency Provider Emergency Medicine; PCP Family Medicine; Visit Provider Emergency Medicine
DX: T50.995A Adverse effect of other drugs, medicaments and biological substances, initial encounter (principal); J01.90 Acute sinusitis, unspecified; F17.290 Nicotine dependence, other tobacco product, uncomplicated
CPT/HCPCS: 99283

== ENCOUNTER 2025-07-10 09:58 | Emergency (ER) | payer OTHER, SELFPAY ==
--- OUTSIDE RECORDS SUMMARY | 2025-06-23 08:26 | XMS RPT_ITS ---
Author Name Auto Generated Organization OH[facility] Care Team Providers Care Doper Operator Name Role Phone KIRIT DONALDSON Attending Unavailab KIRIT Rivas Primary Care Unavailab KIRIT Rivas Primary Care Unavailab le KIRIT DONALDSON Primary Care Unavailab KIRIT Rivas Primary Care Unavailab VICENTE Scales Attending Unavailable PROBLEMS DATE TYPE CONDITION / CODE ATTENDING STATUS [facility] 06/23/2025 Active Carpal tunnel syndrome, bilateral / G56.03(ICD-10) KIRIT DONALDSON Active [facility] 03/03/2025 Active Bacterial sinusi tis / J32.9(ICD-10) VICENTE CLINTON Active [facility] 03/03/2025 Active Bacterial sinusi tis / B96.89(ICD-10) VICENTE CLINTON Active [facility] PROCEDURES No Procedure Records Found RESULTS PROGRESS Observed: 06/23/2025 8:46 AM Status: COMPLETED Source: [facility] HNO ID: [id number] Author: KIRIT DONALDSON MD Service: ? Author Type: Physician Type: Progress Notes Filed: 06/23/2025 09:22 Note Text: Chief Complaint Patient presents with: Acute Visit: Bilateral forearm/wrist pain for awhile but getting progressively worse; R hand dominant Recording using K1 Speed software for draft documentation of the visit was discussed with the patient/authorized open claims representative; all questions welcomed and answered. Patient/authorized open claims representative agreed to proceed HPI Alicia Rudd is a 25 year old female who presents here today for Above Complaints. Bilateral Hand and Forearm Pain, Numbness, and Tingling: - Symptoms began approximately two years ago with intermittent pain at the base of the thumbs. - Pain has progressively worsened, now extending down both arms with decreased hand strength. - Difficulty opening objects, including plastic bags with seals. - Pain primarily localized to the forearms, occasionally in the hands. 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 - Describes pain as "aching" and "sharp," with a sensation of numbness in the "inside parts" of the arms. - Pain is severe enough to require Advil during work tasks. - Experiences numbness and tingling in the first three fingers of both hands, with no significant difference between the left and right sides. - Occasionally uses a brace at night to immobilize the wrist, but not consistently. - Pain and numbness are worse during and after work, persisting into the next day. - Denies recent head or neck injury. - Alicia has taken Aleve and ibuprofen without issues; previously reported shortness of breath with ibuprofen but has not experienced this recently. - Denies current ; on control and not sexually active since the end of April. - Last menstrual period was approximately two weeks ago, with regular cycles and no missed control doses. Past medical history, appointments, medications, allergies reviewed. 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 Depression Genital herpes Heterochromia of iris R eye green; L eye blue History of chlamydia 09/2018 treated and eradicated PMH - PAST MEDICAL HISTORY OF 01/13 normal color vision (HCC) Respiratory syncytial virus (RSV) Tobacco use Previous Surgical History PAST SURGICAL HISTORY Procedure Laterality Date PAST SURGICAL HISTORY OF age 3 years - tonsils out - Dr Bey Family History FAMILY HISTORY Problem Relation Age of Onset other (heart disease) Other maternal side Diabetes Other maternal side other (heart disease) Other paternal side Diabetes Paternal Grandmother Osteoporosis Maternal Grandmother Patient Allergies ALLERGIES Allergen Reactions Amoxicillin Hives Current Medications Current Outpatient Medications on File Prior to Visit Medication Sig Desogestrel-Ethinyl Estradiol (ISIBLOOM) 0.15-0.03 mg per tablet Take 1 tablet by mouth once daily. fluticasone (FLONASE) 50 mcg/actuation nasal spray Use 2 Sprays in each nostril once daily. Rinse mouth after use. APRI 0.15-0.03 mg per tablet (Patient not taking: Reported on 10/12/2023) No current facility-administered medications on file prior to visit. Social History SOCIAL HISTORY[1] Review of Symptoms REVIEW OF SYSTEMS See HPI EXAM: BP 130/85 Pulse 101 Resp 16 Wt 118.8 kg (262 lb) LMP 03/02/2023 (Approximate) SpO2 100% BMI 42.11 kg/m? General Appearance: Well appearing, alert, in no acute distress, well-hydrated, well nourished.. Skin: Skin color, texture, turgor normal, no suspicious rashes or lesions. Musculoskeletal: No swelling or erythema of fingers or wrists bilaterally. Normal ROM of wrists and fingers. 4/5 media relations intern strength bilaterally. Positive tinels and phalens. Pulses: 2+ radial pulse bilaterally Health Maintenance List Depression Screening Never done Anxiety Screening Never done Influenza Vaccine(1) due on 06/12/2025 Cervical Cancer Screening due on 08/05/2025 DTaP,Tdap,Td Vaccine(11 - Td or Tdap) due on 09/01/2029 Hepatitis B Vaccine Completed HPV Vaccine Completed Hepatitis C Screening Completed HIV Screening Completed 1. Carpal tunnel syndrome, bilateral (G56.03) - Chronic, worsening symptoms over 2 years, including pain at the base of the thumbs radiating down both arms, decreased hand strength, and paresthesia in the first three digits of both hands; symptoms exacerbated by repetitive typing. - Positive Tinel's and Phalen's signs bilaterally. - Start meloxicam (Mobic) 15 mg PO daily with food for 30 days with refills; advised to avoid concurrent use of other NSAIDs (ibuprofen, Aleve) due to risk of GI and renal side effects; may use Tylenol as needed. - Apply ice to wrists 15-20 minutes, 3-4 times daily. - Perform home wrist stretches as demonstrated in clinic. - Use cock-up wrist splints at night bilaterally; provided order for splints to be obtained from [employer]. - If no improvement after 2 weeks of consistent therapy, consider EMG/nerve conduction studies and referral to hand surgery for possible corticosteroid injection or surgical intervention. - Educated on pathophysiology, conservative management, and indications for escalation; patient verbalized understanding. - Follow-up in a few weeks to reassess symptoms. Kirit Donaldson MD [1] Social History Tobacco Use Smoking status: Former Average packs/day: 0.5 packs/day for 4.0 years (2.0 ttl pk-yrs) Types: Cigarettes Start date: 08/2024 Quit date: 2015 Years since quittin.7 Smokeless tobacco: Never Tobacco comments: not while Vaping Use Vaping status: current everyday user Substance Use Topics Alcohol use: Yes Comment: rarely Drug use: Yes Comment: marijuana- rare CNOV Observed: 06/23/2025 8:40 AM Status: COMPLETED Source: [facility] ALICIA RUDD ([id number]) 2000 F Date Time Provider Department 06/23/25 8:40 AM KIRIT DONALDSON [facility] During your visit today, we recorded the following information about you: Pulse Respiration Blood pressure Weight 101/minute 16/minute 130/85 118.8 kg Kirit Donaldson MD 06/23/2025 9:22 AM Signed Chief Complaint Patient presents with: Acute Visit: Bilateral forearm/wrist pain for awhile but getting progressively worse; R hand dominant Recording using K1 Speed software for draft documentation of the visit was discussed with the patient/authorized open claims representative; all questions welcomed and answered. Patient/authorized open claims representative agreed to proceed HPI Alicia Rudd is a 25 year old female who presents here today for Above Complaints. Bilateral Hand and Forearm Pain, Numbness, and Tingling: - Symptoms began approximately two years ago with intermittent pain at the base of the thumbs. - Pain has progressively worsened, now extending down both arms with decreased hand strength. - Difficulty opening objects, including plastic bags with seals. - Pain primarily localized to the forearms, occasionally in the hands. 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 - Describes pain as "aching" and "sharp," with a sensation of numbness in the "inside parts" of the arms. - Pain is severe enough to require Advil during work tasks. - Experiences numbness and tingling in the first three fingers of both hands, with no significant difference between the left and right sides. - Occasionally uses a brace at night to immobilize the wrist, but not consistently. - Pain and numbness are worse during and after work, persisting into the next day. - Denies recent head or neck injury. - Alicia has taken Aleve and ibuprofen without issues; previously reported shortness of breath with ibuprofen but has not experienced this recently. - Denies current ; on control and not sexually active since the end of April. - Last menstrual period was approximately two weeks ago, with regular cycles and no missed control doses. Past medical history, appointments, medications, allergies reviewed. 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 Depression Genital herpes Heterochromia of iris R eye green; L eye blue History of chlamydia 09/2018 treated and eradicated PMH - PAST MEDICAL HISTORY OF 01/13 normal color vision (HCC) Respiratory syncytial virus (RSV) Tobacco use Previous Surgical History PAST SURGICAL HISTORY Procedure Laterality Date PAST SURGICAL HISTORY OF age 3 years - tonsils out - Dr Bey Family History FAMILY HISTORY Problem Relation Age of Onset other (heart disease) Other maternal side Diabetes Other maternal side other (heart disease) Other paternal side Diabetes Paternal Grandmother Osteoporosis Maternal Grandmother Patient Allergies ALLERGIES Allergen Reactions Amoxicillin Hives Current Medications Current Outpatient Medications on File Prior to Visit Medication Sig Desogestrel-Ethinyl Estradiol (ISIBLOOM) 0.15-0.03 mg per tablet Take 1 tablet by mouth once daily. fluticasone (FLONASE) 50 mcg/actuation nasal spray Use 2 Sprays in each nostril once daily. Rinse mouth after use. APRI 0.15-0.03 mg per tablet (Patient not taking: Reported on 10/12/2023) No current facility-administered medications on file prior to visit. Social History SOCIAL HISTORY[1] Review of Symptoms REVIEW OF SYSTEMS See HPI EXAM: BP 130/85 Pulse 101 Resp 16 Wt 118.8 kg (262 lb) LMP 03/02/2023 (Approximate) SpO2 100% BMI 42.11 kg/m? General Appearance: Well appearing, alert, in no acute distress, well-hydrated, well nourished.. Skin: Skin color, texture, turgor normal, no suspicious rashes or lesions. Musculoskeletal: No swelling or erythema of fingers or wrists bilaterally. Normal ROM of wrists and fingers. 4/5 media relations intern strength bilaterally. Positive tinels and phalens. Pulses: 2+ radial pulse bilaterally Health Maintenance List Depression Screening Never done Anxiety Screening Never done Influenza Vaccine(1) due on 06/12/2025 Cervical Cancer Screening due on 08/05/2025 DTaP,Tdap,Td Vaccine(11 - Td or Tdap) due on 09/01/2029 Hepatitis B Vaccine Completed HPV Vaccine Completed Hepatitis C Screening Completed HIV Screening Completed 1. Carpal tunnel syndrome, bilateral (G56.03) - Chronic, worsening symptoms over 2 years, including pain at the base of the thumbs radiating down both arms, decreased hand strength, and paresthesia in the first three digits of both hands; symptoms exacerbated by repetitive typing. - Positive Tinel's and Phalen's signs bilaterally. - Start meloxicam (Mobic) 15 mg PO daily with food for 30 days with refills; advised to avoid concurrent use of other NSAIDs (ibuprofen, Aleve) due to risk of GI and renal side effects; may use Tylenol as needed. - Apply ice to wrists 15-20 minutes, 3-4 times daily. - Perform home wrist stretches as demonstrated in clinic. - Use cock-up wrist splints at night bilaterally; provided order for splints to be obtained from [employer]. - If no improvement after 2 weeks of consistent therapy, consider EMG/nerve conduction studies and referral to hand surgery for possible corticosteroid injection or surgical intervention. - Educated on pathophysiology, conservative management, and indications for escalation; patient verbalized understanding. - Follow-up in a few weeks to reassess symptoms. Kirit Donaldson MD [1] Social History Tobacco Use Smoking status: Former Average packs/day: 0.5 packs/day for 4.0 years (2.0 ttl pk-yrs) Types: Cigarettes Start date: 08/2024 Quit date: 2015 Years since quittin.7 Smokeless tobacco: Never Tobacco comments: not while Vaping Use Vaping status: current everyday user Substance Use Topics Alcohol use: Yes Comment: rarely Drug use: Yes Comment: marijuana- rare Kirit Donaldson MD 06/23/2025 9:04 AM Signed - Take meloxicam 15 mg once daily with food each morning for at least two weeks; after that you may switch to as-needed dosing if your pain improves. Prescription includes a 30-day supply with refills. - Do not take other NSAIDs (ibuprofen or Aleve) while on meloxicam; you may use Tylenol for extra pain relief. - Apply ice to both wrists for 15-20 minutes, 3-4 times per day. - Perform wrist stretches daily: with your arm straight, pull your hand back toward you and hold for 10 seconds, then point your fingers down and hold for 10 seconds. - Wear a cock-up wrist splint on both wrists at night. - Monitor your symptoms; if pain, numbness, or tingling does not improve after one month or worsens, contact us to arrange nerve-conduction testing (EMG) and possible referral to a hand specialist for injection or surgery. - The nurse will contact you soon to schedule your annual physical before the end of the year. - You may get a flu shot in early to mid-July at your pharmacy or clinic if you choose. Allergies As of Date: 06/23/2025 Noted Allergy Reaction AMOXICILLIN 11/22/2024 4 - Hives Date Reviewed: 06/23/2025 Reviewed by: Grant Hinojosa LPN - Fully Assessed Reason for Visit: Acute Visit [896] Cmt: Bilateral forearm/wrist pain for awhile but getting progressively worse; R hand dominant Primary Visit Diagnosis:Carpal tunnel syndrome, bilateral [G56.03] Order(s):COCK-UP WRIST SPLINT [[id number]] Order #: [id number]: 2 meloxicam (MOBIC) 15 mg tabletTake 1 tablet by mouth once daily. With food.Disp: 30 tabletRfl: 2 Prescriptions as of 06/23/2025 - meloxicam (MOBIC) 15 mg tablet Take 1 tablet by mouth once daily. With food. - Desogestrel-Ethinyl Estradiol (ISIBLOOM) 0.15-0.03 mg per tablet Take 1 tablet by mouth once daily. - fluticasone (FLONASE) 50 mcg/actuation nasal spray Use 2 Sprays in each nostril once daily. Rinse mouth after use. Problem List As Of Date 06/23/2025 Noted Resolved HYPERMOBILITY [M35.7] 04/29/2005 FLUSHING [R23.2] 04/29/2005 Tobacco use [Z72.0] Other instructions from your clinician: - Take meloxicam 15 mg once daily with food each morning for at least two weeks; after that you may switch to as-needed dosing if your pain improves. Prescription includes a 30-day supply with refills. - Do not take other NSAIDs (ibuprofen or Aleve) while on meloxicam; you may use Tylenol for extra pain relief. - Apply ice to both wrists for 15-20 minutes, 3-4 times per day. - Perform wrist stretches daily: with your arm straight, pull your hand back toward you and hold for 10 seconds, then point your fingers down and hold for 10 seconds. - Wear a cock-up wrist splint on both wrists at night. - Monitor your symptoms; if pain, numbness, or tingling does not improve after one month or worsens, contact us to arrange nerve-conduction testing (EMG) and possible referral to a hand specialist for injection or surgery. - The nurse will contact you soon to schedule your annual physical before the end of the year. - You may get a flu shot in early to mid-July at your pharmacy or clinic if you choose. Prescriptions ordered this encounter Disp Refills Start End MELOXICAM 15 MG TABLET 30 t* 2 06/23/2025 09/21/2025 Route: PO Sig: Take 1 tablet by mouth once daily. With food. Medications Discontinued During This Encounter Prescriptions - APRI 0.15-0.03 mg per tablet (Discontinued) Reported on 10/12/2023 Disposition: Return in about 3 months (around 09/22/2025) for Annual physical. Follow-up and Disposition History for Encounter Date Provider Department Center 06/23/2025 [id number] DONALDSON [facility] Encounter Status:Closed by KIRIT DONALDSON on 06/23/25 PROGRESS Observed: 03/03/2025 6:05 PM Status: COMPLETED Source: [facility] HNO ID: [id number] Author: VICENTE CLINTON APRN.POWER DISTRIBUTOR Service: ? Author Type: Nurse Practitioner Type: Progress Notes Filed: 03/03/2025 18:06 Note Text: [facility] Subjective Alicia Rudd is a 25 year old female. Patient presents with: Sinus Problem: Nasal congestion, sinus pain and pressure x11 days HPI Sinus Infection: - Onset early last week. - Reports "a lot of pressure and pain" in the sinus area. - Denies fever. - Mild earache, intermittent. - Mild cough and drainage. - Allergic to penicillin. - Denies possibility of . Review of Systems Constitutional: (-) fever Ears/Nose/Mouth/Throat: (+) earache, (+) sinus pressure, (+) nasal drainage, (-) sore throat Respiratory: (+) cough Objective BP 145/92 Pulse 88 Temp 37.5 ?C (99.5 ?F) Resp 18 Wt 116.2 kg (256 lb 2.8 oz) LMP 03/02/2023 (Approximate) SpO2 96% BMI 41.17 kg/m? Physical Exam General: No acute distress. HEENT: Oropharynx without erythema or exudate; tympanic membranes normal bilaterally. CV: Normal heart sounds. Resp: Lungs clear to auscultation bilaterally. {1. Bacterial sinusitis (J32.9) - Symptoms include facial pressure, pain, drainage, and a slight cough, with occasional otalgia. No fever or significant sore throat reported. - Physical examination reveals clear lungs, normal heart sounds, and no abnormalities in the throat or tympanic membranes. - Initiated doxycycline BID for 7 days due to penicillin allergy. - Advised rest, increased fluid intake, use of Flonase, and application of Vicks VapoRub to alleviate nasal congestion. - Prescription sent to [facility] pharmacy in [place]. - Instructed to follow up with primary care physician if symptoms do not improve. and Recording using K1 Speed software for draft documentation of the visit was discussed with the patient/authorized open claims representative; all questions welcomed and answered. Patient/authorized open claims representative agreed to proceed MDM Procedures CNOV Observed: 03/03/2025 5:45 PM Status: COMPLETED Source: [facility] Office Visit ([facility]) ALICIA [id number]) 2000 F Date Time Provider Department 03/03/25 5:45 PM GEOFFVICENTE [facility] During your visit today, we recorded the following information about you: Temperature Pulse Respiration Blood pressure 99.5 degrees 88/minute 18/minute 145/92 Weight 116.2 kg Vicente Clinton, SUKHWINDER.POWER DISTRIBUTOR 03/03/2025 6:06 PM Signed [facility] Subjective Alicia Rudd is a 25 year old female. Patient presents with: Sinus Problem: Nasal congestion, sinus pain and pressure x11 days HPI Sinus Infection: - Onset early last week. - Reports "a lot of pressure and pain" in the sinus area. - Denies fever. - Mild earache, intermittent. - Mild cough and drainage. - Allergic to penicillin. - Denies possibility of . Review of Systems Constitutional: (-) fever Ears/Nose/Mouth/Throat: (+) earache, (+) sinus pressure, (+) nasal drainage, (-) sore throat Respiratory: (+) cough Objective BP 145/92 Pulse 88 Temp 37.5 ?C (99.5 ?F) Resp 18 Wt 116.2 kg (256 lb 2.8 oz) LMP 03/02/2023 (Approximate) SpO2 96% BMI 41.17 kg/m? Physical Exam General: No acute distress. HEENT: Oropharynx without erythema or exudate; tympanic membranes normal bilaterally. CV: Normal heart sounds. Resp: Lungs clear to auscultation bilaterally. {1. Bacterial sinusitis (J32.9) - Symptoms include facial pressure, pain, drainage, and a slight cough, with occasional otalgia. No fever or significant sore throat reported. - Physical examination reveals clear lungs, normal heart sounds, and no abnormalities in the throat or tympanic membranes. - Initiated doxycycline BID for 7 days due to penicillin allergy. - Advised rest, increased fluid intake, use of Flonase, and application of Vicks VapoRub to alleviate nasal congestion. - [facility] [place]. - Instructed to follow up with primary care physician if symptoms do not improve. and Recording using ambient AI software for draft documentation of the visit was discussed with the patient/authorized open claims representative; all questions welcomed and answered. Patient/authorized open claims representative agreed to proceed MDM Procedures Allergies As of Date: 03/03/2025 Noted Allergy Reaction IBUPROFEN 03/10/2012 12 - Shortness of Breath AMOXICILLIN 11/22/2024 4 - Hives Date Reviewed: 03/03/2025 Reviewed by: Priscilla Mackenzie LPN - Fully Assessed Reason for Visit: Sinus Problem [99] Cmt: Nasal congestion, sinus pain and pressure x11 days Primary Visit Diagnosis:Bacterial sinusitis [J32.9, B96.89] Order(s):doxycycline monohydrate (MONODOX) 100 mg capsuleTake 1 capsule by mouth two times a day for 7 days.Disp: 14 capsuleRfl: 0 Prescriptions as of 03/03/2025 - doxycycline monohydrate (MONODOX) 100 mg capsule Take 1 capsule by mouth two times a day for 7 days. - Desogestrel-Ethinyl Estradiol (ISIBLOOM) 0.15-0.03 mg per tablet Take 1 tablet by mouth once daily. - fluticasone (FLONASE) 50 mcg/actuation nasal spray Use 2 Sprays in each nostril once daily. Rinse mouth after use. - APRI 0.15-0.03 mg per tablet Problem List As Of Date 03/03/2025 Noted Resolved HYPERMOBILITY [M35.7] 04/29/2005 FLUSHING [R23.2] 04/29/2005 Tobacco use [Z72.0] Prescriptions ordered this encounter Disp Refills Start End DOXYCYCLINE MONOHYDRATE 100 MG CAPSU* 14 c* 0 03/03/2025 03/10/2025 Route: PO Sig: Take 1 capsule by mouth two times a day for 7 days. Encounter Status:Closed by VICENTE CLINTON on 03/03/25 PROGRESS Observed: 11/22/2024 8:58 AM Status: COMPLETED Source: [facility] ID: [id number] Author: STEPHANIE PEREZ APRN.PRO Service: ? Author Type: Nurse Practitioner Type: Progress Notes Filed: 11/22/2024 09:00 Note Text: CC: Patient presents with: Sinus Infection: sinus pressure, drainage, cough x 10 days HPI: Alicia Rudd is a 24 year old female who presents to the office with complaint of head congestion, cough, nonproductive, and sinus symptoms for 10 days. Symptoms are worsening Associated symptoms includes nasal congestion and facial pain/pressure. Denies wheezing, dyspnea, nausea, vomiting , and diarrhea. Treatments tried include nothing so far. with no relief of symptoms. Sick contacts: unknown. History of asthma, frequent episodes of bronchitis, chronic bronchitis, bronchiectasis or COPD: No Smoker: No Seasonal/environmental allergies: No The ROS is otherwise negative. The patient's pmh, medications, allergies, and past visits are reviewed. PHYSICAL EXAM: BP 142/90 Pulse 112 Temp 37.1 ?C (98.7 ?F) Resp 16 Wt 114.8 kg (253 lb 1.4 oz) LMP 03/02/2023 (Approximate) SpO2 100% BMI 40.67 kg/m? General appearance: alert, cooperative, pleasant, in no acute distress Head: Normocephalic Eyes: EOM's intact, conjunctiva pink and moist, no icterus, sclera white, non-injected Ears: Right ear: External ear/canal- Normal, TM - clear with good landmarks. Left ear: External ear/canal- Normal, TM - clear with good landmarks Oropharynx:moist without lesions, No erythema, exudates or tonsillar hypertrophy. Heart: Negative. RRR without obvious murmur, gallop, or rubs. No ectopy. 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 fluticasone (FLONASE) 50 mcg/actuation nasal spray Use 2 Sprays in each nostril once daily. Rinse mouth after use. doxycycline (VIBRA-TABS) 100 mg tablet Take 1 tablet by mouth two times a day for 7 days. APRI 0.15-0.03 mg per tablet (Patient not taking: Reported on 10/12/2023) FAMILY HISTORY Problem Relation Age of Onset other (heart disease) Other maternal side Diabetes Other maternal side other (heart disease) Other paternal side Diabetes Paternal Grandmother Osteoporosis Maternal Grandmother Social History Tobacco Use Smoking status: Every Day Current packs/day: 0.50 Average packs/day: 0.5 packs/day for 4.0 years (2.0 ttl pk-yrs) Types: Cigarettes Smokeless tobacco: Never Tobacco comments: not while Vaping Use Vaping status: Never Used Substance Use Topics Alcohol use: Yes Comment: rarely Drug use: Yes Comment: marijuana- rare ASSESSMENT/PLAN: 1. Rhinosinusitis - ICD9: 473.9, ICD10: J32.9 - DOXYCYCLINE HYCLATE 100 MG TABLET Prescription instructions reviewed with patient as applicable. Potential red flag symptoms discussed with the patient. Reviewed appropriate action plan to take if red flag symptoms occur. Patient agreeable to treatment plan. Stephanie Perez APRN.POWER DISTRIBUTOR CNOV Observed: 11/22/2024 8:45 AM Status: COMPLETED Source: [facility] Office Visit ([facility]) ALICIA RUDD ([id number]) 2000 F Date Time Provider Department 11/22/24 8:45 AM STEPHANIE PEREZ [facility] During your visit today, we recorded the following information about you: Temperature Pulse Respiration Blood pressure 98.7 degrees 112/minute 16/minute 142/90 Weight 114.8 kg Stephanie Perez APRN.CNP 11/22/2024 9:00 AM Signed CC: Patient presents with: Sinus Infection: sinus pressure, drainage, cough x 10 days HPI: Alicia Serafin Kellyby is a 24 year old female who presents to the office with complaint of head congestion, cough, nonproductive, and sinus symptoms for 10 days. Symptoms are worsening Associated symptoms includes nasal congestion and facial pain/pressure. Denies wheezing, dyspnea, nausea, vomiting , and diarrhea. Treatments tried include nothing so far. with no relief of symptoms. Sick contacts: unknown. History of asthma, frequent episodes of bronchitis, chronic bronchitis, bronchiectasis or COPD: No Smoker: No Seasonal/environmental allergies: No The ROS is otherwise negative. The patient's pmh, medications, allergies, and past visits are reviewed. PHYSICAL EXAM: BP 142/90 Pulse 112 Temp 37.1 ?C (98.7 ?F) Resp 16 Wt 114.8 kg (253 lb 1.4 oz) LMP 03/02/2023 (Approximate) SpO2 100% BMI 40.67 kg/m? General appearance: alert, cooperative, pleasant, in no acute distress Head: Normocephalic Eyes: EOM's intact, conjunctiva pink and moist, no icterus, sclera white, non-injected Ears: Right ear: External ear/canal- Normal, TM - clear with good landmarks. Left ear: External ear/canal- Normal, TM - clear with good landmarks Oropharynx:moist without lesions, No erythema, exudates or tonsillar hypertrophy. Heart: Negative. RRR without obvious murmur, gallop, or rubs. No ectopy. 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 fluticasone (FLONASE) 50 mcg/actuation nasal spray Use 2 Sprays in each nostril once daily. Rinse mouth after use. doxycycline (VIBRA-TABS) 100 mg tablet Take 1 tablet by mouth two times a day for 7 days. APRI 0.15-0.03 mg per tablet (Patient not taking: Reported on 10/12/2023) FAMILY HISTORY Problem Relation Age of Onset other (heart disease) Other maternal side Diabetes Other maternal side other (heart disease) Other paternal side Diabetes Paternal Grandmother Osteoporosis Maternal Grandmother Social History Tobacco Use Smoking status: Every Day Current packs/day: 0.50 Average packs/day: 0.5 packs/day for 4.0 years (2.0 ttl pk-yrs) Types: Cigarettes Smokeless tobacco: Never Tobacco comments: not while Vaping Use Vaping status: Never Used Substance Use Topics Alcohol use: Yes Comment: rarely Drug use: Yes Comment: marijuana- rare ASSESSMENT/PLAN: 1. Rhinosinusitis - ICD9: 473.9, ICD10: J32.9 - DOXYCYCLINE HYCLATE 100 MG TABLET Prescription instructions reviewed with patient as applicable. Potential red flag symptoms discussed with the patient. Reviewed appropriate action plan to take if red flag symptoms occur. Patient agreeable to treatment plan. Stephanie Perez APRN.POWER DISTRIBUTOR Allergies As of Date: 11/22/2024 Noted Allergy Reaction IBUPROFEN 03/10/2012 12 - Shortness of Breath AMOXICILLIN 11/22/2024 4 - Hives Date Reviewed: 11/22/2024 Reviewed by: Edith Castillo MA - Fully Assessed Reason for Visit: Sinus Infection [4232] Cmt: sinus pressure, drainage, cough x 10 days Primary Visit Diagnosis:Rhinosinusitis [J32.9] Order(s):doxycycline (VIBRA-TABS) 100 mg tabletTake 1 tablet by mouth two times a day for 7 days.Disp: 14 tabletRfl: 0 Prescriptions as of 11/22/2024 - doxycycline (VIBRA-TABS) 100 mg tablet Take 1 tablet by mouth two times a day for 7 days. - Desogestrel-Ethinyl Estradiol (ISIBLOOM) 0.15-0.03 mg per tablet Take 1 tablet by mouth once daily. - fluticasone (FLONASE) 50 mcg/actuation nasal spray Use 2 Sprays in each nostril once daily. Rinse mouth after use. - APRI 0.15-0.03 mg per tablet Problem List As Of Date 11/22/2024 Noted Resolved HYPERMOBILITY [M35.7] 04/29/2005 FLUSHING [R23.2] 04/29/2005 Tobacco use [Z72.0] Prescriptions ordered this encounter Disp Refills Start End DOXYCYCLINE HYCLATE 100 MG TABLET 14 t* 0 11/22/2024 11/29/2024 Route: ORAL Sig: Take 1 tablet by mouth two times a day for 7 days. Encounter Status:Closed by STEPHANIE PEREZ on 11/22/24 BATSHEVA Observed: 10/19/2024 12:00 AM Status: COMPLETED Source: [facility] ALICIA RUDD ([id number]) 2000 F Date Time Provider Department 10/19/24 [facility] DONAL[facility] During your visit today, we recorded the following information about you: Priscilla Mackenzie LPN 10/19/2024 7:12 PM Signed Patient seen at [facility] on 10/15/2024 for an allergic reaction. Provider would like patient to follow up in 1 week. Telephone call placed to patient, message left to call office back. Priscilla Mackenzie LPN Allergies As of Date: 10/19/2024 Noted Allergy Reaction IBUPROFEN 03/10/2012 12 - Shortness of Breath Date Reviewed: 10/15/2024 Reviewed by: Edith Castillo MA - Fully Assessed Reason for Visit: Appointment [186] Cmt: ER follow up Prescriptions as of 10/25/2024 - Desogestrel-Ethinyl Estradiol (ISIBLOOM) 0.15-0.03 mg per tablet Take 1 tablet by mouth once daily. - fluticasone (FLONASE) 50 mcg/actuation nasal spray Use 2 Sprays in each nostril once daily. Rinse mouth after use. - APRI 0.15-0.03 mg per tablet Problem List As Of Date 10/19/2024 Noted Resolved HYPERMOBILITY [M35.7] 04/29/2005 FLUSHING [R23.2] 04/29/2005 Tobacco use [Z72.0] Encounter Status:Closed by PRISCILLA MACKENZIE on 10/25/24 PROGRESS Observed: 10/15/2024 1:50 PM Status: COMPLETED Source: [facility] HNO ID: [id number] Author: JAM CHI APRN.POWER DISTRIBUTOR Service: ? Author Type: Nurse Practitioner Type: Progress Notes Filed: 10/15/2024 13:57 Note Text: Subjective HPI Alicia presents today with complaint of sinus pain and pressure x 12 days. 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 fluticasone (FLONASE) 50 mcg/actuation nasal spray Use 2 Sprays in each nostril once daily. Rinse mouth after use. APRI 0.15-0.03 mg per tablet (Patient not taking: Reported on 10/12/2023) FAMILY HISTORY Problem Relation Age of Onset other (heart disease) Other maternal side Diabetes Other maternal side other (heart disease) Other paternal side Diabetes Paternal Grandmother Osteoporosis Maternal Grandmother Social History Tobacco Use Smoking status: Every Day Current packs/day: 0.50 Average packs/day: 0.5 packs/day for 4.0 years (2.0 ttl pk-yrs) Types: Cigarettes Smokeless tobacco: Never Tobacco comments: not while Vaping Use Vaping status: Never Used Substance Use Topics Alcohol use: Yes Comment: rarely Drug use: Yes Comment: marijuana- rare Review of Systems HENT: Positive for congestion and sinus pain. Respiratory: Positive for cough. All other systems reviewed and are negative. Objective Physical Exam Vitals and nursing note reviewed. Constitutional: Appearance: Normal appearance. HENT: Head: Normocephalic and atraumatic. Right Ear: Tympanic membrane, ear canal and external ear normal. Left Ear: Tympanic membrane, ear canal and external ear normal. Nose: Congestion present. Mouth/Throat: Mouth: Mucous membranes are moist. Pharynx: Oropharynx is clear. Eyes: Extraocular Movements: Extraocular movements intact. Conjunctiva/sclera: Conjunctivae normal. Pupils: Pupils are equal, round, and reactive to light. Cardiovascular: Rate and Rhythm: Normal rate and regular rhythm. Pulses: Normal pulses. Heart sounds: Normal heart sounds. Pulmonary: Effort: Pulmonary effort is normal. No respiratory distress. Breath sounds: Normal breath sounds. No stridor. No wheezing, rhonchi or rales. Chest: Chest wall: No tenderness. Abdominal: General: Abdomen is flat. Bowel sounds are normal. Palpations: Abdomen is soft. Musculoskeletal: General: Normal range of motion. Cervical back: Normal range of motion and neck supple. Lymphadenopathy: Cervical: No cervical adenopathy. Skin: General: Skin is warm and dry. Capillary Refill: Capillary refill takes less than 2 seconds. Neurological: General: No focal deficit present. Mental Status: She is alert and oriented to person, place, and time. Psychiatric: Mood and Affect: Mood normal. ASSESSMENT/PLAN: 1. Bacterial sinusitis - ICD9: 473.9, 041.9, ICD10: J32.9, B96.89 - Will begin treatment with Amoxicillin for 7 days - Supportive care with plenty of fluids, rest, and analgesia prn. - Follow up in 3-5 days if symptoms persist or worsen. Jam Chi APRN.PRO CNOV Observed: 10/15/2024 1:30 PM Status: COMPLETED Source: [facility] Office Visit ([facility]) ALICIA RUDD ([id number]) 2000 F Date Time Provider Department 10/15/24 1:30 PM JAM CHI During your visit today, we recorded the following information about you: Temperature Pulse Respiration Blood pressure 98.3 degrees 102/minute 16/minute 132/80 Weight 114.8 kg Jam Chi APRN.POWER DISTRIBUTOR 10/15/2024 1:57 PM Signed Subjective HPI Alicia presents today with complaint of sinus pain and pressure x 12 days. 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 fluticasone (FLONASE) 50 mcg/actuation nasal spray Use 2 Sprays in each nostril once daily. Rinse mouth after use. APRI 0.15-0.03 mg per tablet (Patient not taking: Reported on 10/12/2023) FAMILY HISTORY Problem Relation Age of Onset other (heart disease) Other maternal side Diabetes Other maternal side other (heart disease) Other paternal side Diabetes Paternal Grandmother Osteoporosis Maternal Grandmother Social History Tobacco Use Smoking status: Every Day Current packs/day: 0.50 Average packs/day: 0.5 packs/day for 4.0 years (2.0 ttl pk-yrs) Types: Cigarettes Smokeless tobacco: Never Tobacco comments: not while Vaping Use Vaping status: Never Used Substance Use Topics Alcohol use: Yes Comment: rarely Drug use: Yes Comment: marijuana- rare Review of Systems HENT: Positive for congestion and sinus pain. Respiratory: Positive for cough. All other systems reviewed and are negative. Objective Physical Exam Vitals and nursing note reviewed. Constitutional: Appearance: Normal appearance. HENT: Head: Normocephalic and atraumatic. Right Ear: Tympanic membrane, ear canal and external ear normal. Left Ear: Tympanic membrane, ear canal and external ear normal. Nose: Congestion present. Mouth/Throat: Mouth: Mucous membranes are moist. Pharynx: Oropharynx is clear. Eyes: Extraocular Movements: Extraocular movements intact. Conjunctiva/sclera: Conjunctivae normal. Pupils: Pupils are equal, round, and reactive to light. Cardiovascular: Rate and Rhythm: Normal rate and regular rhythm. Pulses: Normal pulses. Heart sounds: Normal heart sounds. Pulmonary: Effort: Pulmonary effort is normal. No respiratory distress. Breath sounds: Normal breath sounds. No stridor. No wheezing, rhonchi or rales. Chest: Chest wall: No tenderness. Abdominal: General: Abdomen is flat. Bowel sounds are normal. Palpations: Abdomen is soft. Musculoskeletal: General: Normal range of motion. Cervical back: Normal range of motion and neck supple. Lymphadenopathy: Cervical: No cervical adenopathy. Skin: General: Skin is warm and dry. Capillary Refill: Capillary refill takes less than 2 seconds. Neurological: General: No focal deficit present. Mental Status: She is alert and oriented to person, place, and time. Psychiatric: Mood and Affect: Mood normal. ASSESSMENT/PLAN: 1. Bacterial sinusitis - ICD9: 473.9, 041.9, ICD10: J32.9, B96.89 - Will begin treatment with Amoxicillin for 7 days - Supportive care with plenty of fluids, rest, and analgesia prn. - Follow up in 3-5 days if symptoms persist or worsen. Jam Chi APRN.POWER DISTRIBUTOR Allergies As of Date: 10/15/2024 Noted Allergy Reaction IBUPROFEN 03/10/2012 12 - Shortness of Breath Date Reviewed: 10/15/2024 Reviewed by: Edith Castillo MA - Fully Assessed Reason for Visit: Sinus Problem [99] Cmt: sinus pressure, drainage x 10 days Primary Visit Diagnosis:Bacterial sinusitis [J32.9, B96.89] Order(s):amoxicillin-clavulanate potassium (AUGMENTIN) 875-125 mg per tabletTake 1 tablet by mouth two times a day for 5 days.Disp: 10 tabletRfl: 0 Prescriptions as of 10/15/2024 - amoxicillin-clavulanate potassium (AUGMENTIN) 875-125 mg per tablet Take 1 tablet by mouth two times a day for 5 days. - Desogestrel-Ethinyl Estradiol (ISIBLOOM) 0.15-0.03 mg per tablet Take 1 tablet by mouth once daily. - fluticasone (FLONASE) 50 mcg/actuation nasal spray Use 2 Sprays in each nostril once daily. Rinse mouth after use. - APRI 0.15-0.03 mg per tablet Problem List As Of Date 10/15/2024 Noted Resolved HYPERMOBILITY [M35.7] 04/29/2005 FLUSHING [R23.2] 04/29/2005 Tobacco use [Z72.0] Prescriptions ordered this encounter Disp Refills Start End AMOXICILLIN 875 MG-POTASSIUM CLAVULA* 10 t* 0 10/15/2024 10/20/2024 Route: ORAL Sig: Take 1 tablet by mouth two times a day for 5 days. Encounter Status:Closed by JAM CHI on 10/15/24 ALLERGIES DATE TYPE / CODE NAME / CODE REACTION SEVERITY SOURCE 11/22/2024 DRUG INGREDI/[id number]( SNOMED CT) AMOXICILLIN HIVES [facility] 03/10/2012 DRUG INGREDI/[id number]( SNOMED CT) IBUPROFEN SHORTNESS OF High [facility] ENCOUNTERS ADMIT/DISCHARGE ACCOUNT NUMBER ADMITTING ENCOUNTER CLASS LOC ATION SOURCE 06/23/2025/ 5 [id number] Ambulatory [facility] 03/03/2025/ 5 [id number] [facility]/22/2024/ 5 [id number] [facility] 10/15/2024/ 5 [id number] [facility] Hospital[facility] PAYERS ENCOUNTER GUARANTOR PAYER SUBSCRIBER SOURCE 06/23/2025 Primary Insuranc e:[facility] CHOICE PLUSPolicy Number: [id number] Date:7620-58-25Owyj Name:Cassy ALICIA ADAM: [id number] [place] [address] [facility] 03/03/2025 Primary Insuranc e:[facility] CHOICE PLUSPolicy Number: [id number] Date:6435-57-18Klku Name:Cassy ADAM: [id number] [place] [address] [facility] 11/22/2024 Primary Insuranc e:[facility] CHOICE PLUSPolicy Number: [id number] Date:2323-77-01Znod Name:Cassy ADAM: [id number] [place] [address] [facility] 10/15/2024 Primary Insuran e:[facility] CHOICE PLUSPolicy Number: [id number] Date:5503-59-52Mrtg Name:Cassy ADAM: [id number] [place] [address] [facility]
[2025-07-10 09:59] VITALS: BP 153/96; PULSE 68; RESP 16; TEMP 36.7; O2SAT 100; BMI 41.6
--- NOTE | 2025-07-10 10:04 | EX.ED.DYSGE1 ---
HPI History of Present Illness Chief Complaint: Palpitations Informant: patient Onset/Context/Timing Onset: Today (Approximately 40 minutes prior to arrival) Context: Sudden Onset Timing: Continuous Quality: Fluttering Location: Upper chest/neck Worsened by: Nothing Relieved by: Nothing Narrative Narrative: Patient presents with palpitations that began today. Patient states it began rather suddenly. Patient states it started approximately 40 minutes prior to arrival while she was at work. Patient states she sits at the desk. Patient states it feels like there is fluttering. Patient states it is mainly over her upper chest and anterior neck. Patient states nothing makes it worse and nothing makes it better. Patient admits to some shortness of breath with this at times. Patient denies any cough. Patient denies any fevers or chills. PFSH [facility] Medical History Glaucoma History of depression Genital herpes Home Medications Medication Instructions Recorded Last Taken Type desogestrel 0.15 mg-ethinyl 1 tab PO DAILY #84 tabs 09/02/24 Unknown Rx estradiol 0.03 mg tablet latanoprost 0.005 % eye drops 1 drp ophthalmic (eye) QHS 07/10/25 Unknown History meloxicam 15 mg tablet 15 mg PO DAILY 07/10/25 Unknown History Allergy/AdvReac Type Severity Reaction Status Date / Time amoxicillin (From Augmentin) Allergy Intermediate Rash Verified 07/10/25 09:59 clavulanic acid (From Allergy Intermediate Rash Verified 07/10/25 09:59 Augmentin) ibuprofen Allergy Intermediate Shortness Verified 07/10/25 09:59 of breath Surgical History History of tonsillectomy Social History household members: children current occupational status: employed Smoking Status: Light Smoker (<10/day) Electronic Cigarette Use: with nicotine alcohol intake: current details: occasionally substance use type: does not use caffeine: Yes what type of physical activity do you participate in: none seatbelt use: always do you feel safe at home: Yes ROS ROS ED Constitutional Constitutional ED: Denies chills or fever(s) Eyes Eyes: Denies blurry vision or change in vision ENT ENT ED: Denies rhinorrhea or sore throat Cardiovascular Cardiovascular: Reports chest pain and palpitations Respiratory/Chest Respiratory/Chest: Reports dyspnea; Denies cough Gastrointestinal Gastrointestinal: Denies nausea or vomiting Genitourinary Genitourinary ED: Denies dysuria or hematuria Musculoskeletal Musculoskeletal: Denies back pain or neck pain Integumentary Denies abscess or rash Neurologic Neurologic: Denies headache(s) or weakness Allergic/Immunologic Allergic/Immunologic ED: Denies mouth swelling or urticaria EXAM Physical Exam Const Vital Signs: 07/10/25 09:59 07/10/25 10:07 07/10/25 11:49 Temperature 98.0 F Temperature Source Oral Pulse Rate 68 58 L Respiratory Rate 16 18 Respiratory Effort Normal Non-Labored Blood Pressure 153/96 H 163/81 H Blood Pressure Mean 115 108 Pulse Ox 100 100 Oxygen Delivery Method Room Air Room Air 07/10/25 13:00 Temperature Temperature Source Pulse Rate 62 Respiratory Rate 13 Respiratory Effort Blood Pressure 130/79 H Blood Pressure Mean 96 Pulse Ox 99 Oxygen Delivery Method Room Air Positive well nourished and well developed Constitutional Narrative: BMI is 41.6. General Appearance ED: well developed and NAD HEENT Reports moist mucous membranes Neck supple and no JVD Resp normal respiratory effort and clear to auscultation bilaterally Cardio regular rate and regular rhythm GI non-tender and non-distended Palpation: soft Extremity normal to inspection General Extremety ED: Negative for edema or tenderness General Extremity: Negative for edema Neuro oriented x3, CN's II-XII intact bilaterally and no sensory deficits noted Sensorium / Orientation: alert Motor Exam: strength 5/5 throughout Psych mental status grossly normal MDM MDM MDM Narrative Medical decision making narrative: Differential gnosis includes cardiac dysrhythmia, cardiac pneumonia, bronchitis, electrolyte abnormality, dehydration, gastroesophageal reflux disease, and anxiety. EKG will be obtained to assess for cardiac dysrhythmia and cardiac ischemia. Chest x-ray will be obtained to assess for pneumonia and bronchitis. CBC will be obtained to assess for leukocytosis and anemia. Basic metabolic profile will be obtained to assess for electrolyte abnormality and renal function. Urinalysis will be obtained to assess for urinary tract infection and hematuria. High-sensitivity troponin will be obtained to assess for cardiac ischemia. 2-hour repeat high-sensitivity troponin will be obtained ongoing cardiac ischemia. History & Record Review Additional record(s) reviewed:: Prior outpatient record, Prior ED visit and Prior labs Lab Data Attestation: I reviewed the patient's lab results. Lab results narrative: CBC was reviewed and was within normal limits. Basic metabolic profile was reviewed and was within normal limits. Initial high-sensitivity troponin was reviewed and was less than 6. Serum hCG was reviewed and was negative. Urinalysis was reviewed. There is no evidence of urinary tract infection or hematuria. 2-hour repeat high-sensitivity troponin was reviewed and was less than 6. Labs: Laboratory Results - last 24 hr 07/10/25 07/10/25 07/10/25 10:36 11:20 12:00 WBC 7.9 RBC 4.60 Hgb 14.3 Hct 41.2 MCV 89.6 MCH 31.1 MCHC 34.7 RDW Std Deviation 39.0 RDW Coeff of Erich 11.9 Plt Count 270 MPV 10.7 Immature Gran % (Auto) 0.400 Neut % (Auto) 65.8 Lymph % (Auto) 26.2 [place] % (Auto) 6.6 Eos % (Auto) 0.6 Baso % (Auto) 0.4 Absolute Neuts (auto) 5.2 Absolute Lymphs (auto) 2.06 Nucleated RBC % 0 Sodium 138 Potassium 4.3 Chloride 105 Carbon Dioxide 20.5 L Anion Gap 13 BUN 9 Creatinine 0.79 Estim Creat Clear Calc 139.13 Est GFR (MDRD) Non-Af 106 BUN/Creatinine Ratio 11.8 Glucose 89 Calcium 9.5 Troponin T High Sens < 6 Troponin T Hi Sens 2 Hr < 6 Serum , Qual NEGATIVE Urine Color Yellow Urine Clarity Clear Urine pH 7.0 Ur Specific [place] 1.005 Urine Protein 15 H Urine Glucose (UA) Normal Urine Ketones 5 H Urine Occult Blood Negative Urine Nitrite Negative Urine Bilirubin Negative Urine Urobilinogen Normal Ur Leukocyte Esterase 500 H Urine RBC 0 SEEN Urine WBC 0 SEEN Ur Squamous Epith Cells 0-5 SEEN Urine Bacteria 0 SEEN Urine Mucus 0 SEEN Radiography Chest X-Ray - ED: 2 View, Read by ED Physician, Read by Radiologist and No Acute Disease Diagnostic Testing: Clinical Impression(s) from Imaging Studies Chest X-Ray 07/10/25 10:23 IMPRESSION: No acute process is identified in the chest. Reading Location: [facility] and lateral chest x-ray was obtained. There are 2 views. On my independent interpretation, lung hook are clear. There is normal cardiac silhouette. Bony thorax is normal. There is no acute process noted. Radiologist also interpreted the x-ray and agrees. EKG Initial EKG: Attestation: I personally reviewed and interpreted this EKG as follows: Interpretation: Sinus Rhythm (63) and No Acute Injury Pattern Comments: EKG was obtained. On my independent interpretation, it showed a normal sinus rhythm with sinus arrhythmia with a rate of 63. TN interval, QRS interval, and QTc intervals were all normal. Gamaliel was normal. There are no acute ST or T wave changes. Prior EKG tracings: not available for review Prior: No Prior Treatment and Re-Evaluation :: Patient was given IV fluids. Patient was resting comfortably on reevaluation. Patient was advised of her findings. Patient was instructed to follow-up with her primary care physician in 5 to 7 days. Patient was instructed to return if worse in any way. Patient is advised she may need further outpatient testing such as Holter monitor or repeat lab work. Patient and family understand and are agreeable with the plan. All questions were answered. Discharge Plan Triage Chief Complaint: Palpitations ED Provider: Evan Arechiga Dx/Rx/DC Orders Clinical Impression: Heart palpitations, Nicotine vapor product user Instructions: ED Heart Palpitations Prescriptions: No Action desogestrel-ethinyl estradiol 0.15-0.03 mg tablet 1 tab PO DAILY Qty: 84 4RF latanoprost 0.005 % drops 1 drp ophthalmic (eye) QHS meloxicam 15 mg tablet 15 mg PO DAILY Primary Care Provider: Eren Donaldson Referrals: Eren Donaldson MD [Primary Care Provider, Family Practice] - 3-5 Days Lucius Fish MD [Med Staff - Active Staff, Cardiology] - 5-7 Days Print Language: Ukrainian Disposition Disposition: Home, Self Care
--- NOTE | 2025-07-10 10:23 | RAD_ITS ---
PROCEDURE: CHEST PA AND LATERAL 07/10/2025 REASON FOR EXAM: PALPITATIONS TECHNIQUE: Procedure Code: RADCXR Modality: DX Procedure: CHEST PA AND LATERAL COMPARISON: None FINDINGS: Heart size and mediastinal configuration are within normal limits. There is no focal infiltrate or consolidation. There is no pneumothorax or effusion. There is no acute bony abnormality. There is no visible atherosclerosis. RAD/Chest PA and Lateral IMPRESSION: No acute process is identified in the chest. Reading Location: [facility]
--- NOTE | 2025-07-10 10:24 | EKG12_ITS ---
Test Reason : Blood Pressure : */* mmHG Vent. Rate : 63 BPM Atrial Rate : 63 BPM P-R Int : 158 ms QRS Dur : 82 ms QT Int : 406 ms P-R-T Axes : 26 78 30 degrees QTcB Int : 415 ms Normal sinus rhythm with sinus arrhythmia Normal ECG Confirmed by MEREDITH MENDOSA, FAINA ([id number]), editorial director EDI TAVERAS ([id number]) on 07/11/2025 8:03:33 AM Referred By: Confirmed By: FAINA HARPER MD
[2025-07-10] MEDS: 0.9% Normal Saline (1000mL) 1,000 ML 1000 ML IV (10:38)
[2025-07-10 10:53] LABS: Hematocrit 41.2 % (37-47); Hemoglobin 14.3 g/dL (12.0-15.0); Immature Granulocytes Count 0.030 X10^3/uL (0.0-0.0); Mean Corp Hgb Conc 34.7 g/dL (32-36); Mean Corpuscular Volume 89.6 fL (81-99); Mean Platelet Vol. 10.7 fl (6.2-12.0); NRBC Flagged by Analyzer 0 % (0-5); Platelet Count 270 K/mm3 (150-450); RBC Distribution Width CV 11.9 % (11.6-14.6); RBC Distribution Width SD 39.0 fl (35.1-43.9); Red Blood Count 4.60 M/mm3 (4.2-5.4); White Blood Count 7.9 K/mm3 (4.4-11.0)
[2025-07-10 11:02] LABS: Internal QC Validated? YES +Cl - CLEAR BKGD; Pregnancy, Serum, hCG Quali. NEGATIVE Negative; Record Kit Lot#, Serum Preg. 0000980607
[2025-07-10 11:18] LABS: Anion Gap 13 (5-15); BUN 9 mg/dL (4-19); BUN/Creat Ratio 11.8 RATIO (10-20); Calcium,Total 9.5 mg/dL (7.6-11.0); Carbon Dioxide 20.5 mmol/L (21.0-32.0); Chloride 105 mmol/L (98-108); Estimated Creatinine Clearance 139.13 ml/min (50-250); Glucose 89 mg/dL (70-99); Potassium 4.3 mmol/L (3.3-5.1)
[2025-07-10 11:22] LABS: Troponin T High Sensitivity < 6 ng/L (<=14)
[2025-07-10 11:26] LABS: Mucous, Urine 0 SEEN /hpf (<or=2+); Red Blood Cells-Urine 0 SEEN /hpf (0-5)
[2025-07-10 11:30] LABS: Color, Urine Yellow (Yellow); Glucose, Dipstick Normal (Normal); Ketone-Dipstick 5 mg/dl (Negative); Leukocyte Esterase-Dipstick 500 /ul (Negative); Nitrite-Dipstick Negative (Negative); Occult Blood-Urine Negative /ul (Negative); Protein-Dipstick 15 mg/dl (Negative); Specific Gravity, Urine 1.005 (1.002-1.030); Urine Bilirubin Dipstick Negative (Negative)
[2025-07-10 11:45] LABS: Squamous Epithelial Cells - UA 0-5 SEEN /hpf (5-10)
[2025-07-10 11:49] VITALS: BP 163/81; PULSE 58; RESP 18; O2SAT 100
[2025-07-10 12:54] LABS: Troponin T High Sens 2 HR < 6 ng/L (<=14)
[2025-07-10 13:00] VITALS: BP 130/79; PULSE 62; RESP 13; O2SAT 99
[2025-07-10 13:55] VITALS: BP 130/79; PULSE 62; RESP 13; TEMP 36.7; O2SAT 99
== END 2025-07-10 14:00 | disposition home or self-care (01) ==
PROVIDERS: Emergency Provider Emergency Medicine; PCP Family Medicine; Visit Provider Emergency Medicine
DX: R00.2 Palpitations (principal); R06.02 Shortness of breath; F17.210 Nicotine dependence, cigarettes, uncomplicated
CPT/HCPCS: 71046; 80048; 81001; 84484; 84703; 85025; 93005; 96360; 99284; A4216